=== PATIENT | female | born 1940 | race Caucasian/White ===

== ENCOUNTER 2022-09-28 08:43 | Outpatient (OUT) | payer MEDICARE, OTHER, SELFPAY ==
--- NOTE | 2022-09-28 09:07 | ECG_ITS ---
[facility] Test Date: 2022-09-28 Pat Name: ARIANE WILL Department: Room: - Gender: Female Surgery Technician: : 1940 Requested By: JOYN SMITH Order Number: [id number] Reading MD: BARNEY MURPHY Measurements Intervals [place] Rate: 58 P: 60 [place]: 189 QRS: 5 QRSD: 97 T: 47 QT: 412 QTc: 407 Interpretive Statements SINUS BRADYCARDIA No previous ECG available for comparison Electronically Signed On 09-29-2022 7:05:06 EDT by BARNEY MURPHY
--- NOTE | 2022-09-28 10:08 | XR_ITS ---
[address] [address] Patient Name: ARIANE WILL MRN: [id number] date: 1940 Sex: F Assigned Patient Location: [facility] Current Patient Location: [facility] Accession/Order Number: [id number] Exam Date: 09/28/2022 10:30 Report Date: 09/28/2022 10:52 At the request of: JONY SMITH Procedure: XR chest 2V EXAM: XR chest 2V HISTORY: Cyst Of Left Ovary COMPARISON: None. TECHNIQUE: PA and lateral views of the chest. FINDINGS: The cardiomediastinal silhouette is enlarged. No focal consolidation is identified. There is no pneumothorax. No pleural effusion is noted. The osseous structures are intact. XR/XR chest 2V IMPRESSION: Cardiomegaly without overt failure. Electronically authenticated by: MACKENZIE IRIZARRY Date: 09/28/2022 10:52
[2022-09-28 11:56] LABS: Anion Gap 12.9; BUN Creatinine Ratio 16.4; Calcium 9.1 mg/dL (8.5-10.1); Carbon Dioxide 30.2 mmol/L (21.0-32.0); Chloride 103 mmol/L (98-107); Estimated GFR (African America 51 (>=60); Estimated GFR (Non-African Ame 42 (>=60); Glucose 235 mg/dL (74-106); Potassium 4.1 mmol/L (3.5-5.1); Sodium 142 mmol/L (136-145)
== END 2022-09-28 08:44 | disposition home or self-care (01) ==
LOC: PST 08:44
PROVIDERS: PCP Family Medicine; Visit Provider Obstetrics & Gynecology
DX: Z01.812 Encounter for preprocedural laboratory examination (principal); Z01.810 Encounter for preprocedural cardiovascular examination; N83.202 Unspecified ovarian cyst, left side; N83.299 Other ovarian cyst, unspecified side; I10 Essential (primary) hypertension; E11.9 Type 2 diabetes mellitus without complications; I25.2 Old myocardial infarction; I51.7 Cardiomegaly
CPT/HCPCS: 71046; 80048; 93005

== ENCOUNTER 2022-10-08 06:02 | Day surgery (SDC) | payer MEDICARE, OTHER, SELFPAY ==
[2022-09-28 09:33] VITALS: BP 172/78; PULSE 63; RESP 20; TEMP 36.4; O2SAT 93; BMI 37.4
[2022-10-08] VITALS (33 sets, daily range): BP systolic 121–208; BP diastolic 54–95; PULSE 56–75; RESP 8–20; TEMP 36.1–36.6; O2SAT 83–97; BMI 38.1
[2022-10-08 06:14] LABS: Basophils Percent Auto 0.6 % (0.2-2.0); Eosinophils Absolute Auto 0.3 10^3/uL (0.0-0.7); Eosinophils Percent Auto 3.7 % (0.9-7.0); Hematocrit 38.6 % (36.0-48.0); Hemoglobin 12.5 g/dL (12.0-16.0); Immature Granulocytes Abs Auto 0.02 10^3/uL (0.00-0.03); Immature Granulocytes Pct Auto 0.3 % (0.0-0.5); Lymphocytes Absolute Auto 1.3 10^3/uL (1.2-3.8); Lymphocytes Percent Auto 18.9 % (20.5-60.0); Mean Corpuscular HGB Conc 32.4 g/dL (29.9-35.2); Mean Corpuscular Hemoglobin 30.2 pg (26.7-34.0); Mean Corpuscular Volume 93.2 fL (81.0-99.0); Mean Platelet Volume 9.4 fL (9.5-13.5); Monocytes Absolute Auto 0.7 10^3/uL (0.3-0.8); Monocytes Percent Auto 10.1 % (1.7-12.0); Neutrophils Absolute Auto 4.5 10^3/uL (1.4-6.5); Neutrophils Percent Auto 66.4 % (43.0-75.0); Platelet Count 247 10^3/uL (150-450); Red Blood Count 4.14 10^6/uL (4.20-5.40); Red Cell Distribution Width 13.7 % (11.0-15.0); White Blood Count 6.7 10^3/uL (4.0-11.0)
[2022-10-08 06:32] LABS: Glucometer 177 mg/dL (74-106)
[2022-10-08] MEDS: LACTATED RINGER'S SOLUTION 1,000 ML 50 ML IV ×2 (06:54→08:40)
[2022-10-08] MEDS: SCOPOLAMINE 1 EACH PATCH.TD.3 1 PATCH TD (07:04)
--- NOTE | 2022-10-08 08:50 | PC.NURSE ---
LEFT OVARIAN CYST FLUID SENT FOR CYTOLOGY
--- NOTE | 2022-10-08 09:26 | P.ON_ITS ---
Brief Operative Note Date of procedure: 10/08/22 Pre-op diagnosis: lt ovarian cyst 11cm Post-op diagnosis: same Procedure: NAME OF PROCEDURE: [diagnostic laparoscopy with lt ovarian cystectomy, with removal of ovarian cyst fluid ] PROCEDURE: The patient was taken back to the Operating Room where she was placed in dorsal lithotomy position after given general anesthesia. The patient was prepped and draped in normal sterile fashion. A sponge stick was placed into the patient's vagina. Attention was turned to the patient's abdomen, where a small umbilical incision was made. The fascia was tented using Renetta clamps and the fascia was entered sharply. Confirmation of intraabdominal placement of the 10 mm port was confirmed under direct visualization using a laparoscope. The patient's abdomen was then insufflated using CO2 gas with approximately 4 liters. A second and third ports was placed left and rt laterally, this was done under direct visualization with a 8mm port. Survey of the patient's abdomen demonstrated normal liver and gallbladder. Survey of the patient's pelvic anatomy demonstrated normal appearing rt ovary and tubes as well as normal appearing uterus. large lt ovarian cyst approximate 11cm in size, ligasure was used to perform ovarian cystectomy and removal of cyst fluid. ligasure was also used to perform partial salpingectomy. Please note ovarty could not be removed in its entirity dt adhesions and involvement of ureter. No endometrial implants could be noted, no evidence of any pelvic disease was seen, normal appearing pelvic cavity. All instruments were removed from the patient's abdomen. . The patient's abdomen was deinsufflated of CO2 gas. The patient tolerated the procedure well. Sponge stick was removed from the patient's vagina. The patient's infraumbilical fascia was closed using #0 Vicryl on a GI needle. The patient's skin was closed laterally and infraumbilically using 4-0 Vicryl. The patient tolerated the procedure well. Sponge, lap and needle counts were correct x 2. The patient was taken to Recovery Room in stable condition.Clips from prior surgery noted adhered to bladder, the clips were grasped and gently removed please note robotic laparoscopy was attempted and converted to diagnostic laparoscopy Anesthesia: CAROLANN Surgeon: Eliseo Infante Performance Improvement Specialist: Ashleigh Chapa Estimated blood loss (mL): 5 Pathology: other (lt partial tube, lt ovarian cyst wall, lt ovarian cyst fluid) Condition: stable Disposition: PACU
[2022-10-08] MEDS: KETOROLAC TROMETHAMINE 30 MG/ML VIAL IVP (09:50)
[2022-10-08] MEDS: HYDROMORPHONE HCL 0.5 MG/0.5 ML SYRINGE IV (09:56)
[2022-10-08] MEDS: HYDRALAZINE HCL 20 MG/ML VIAL 10 MG IVP (10:05)
--- NOTE | 2022-10-08 10:11 | PC.NURSE ---
updated Dr Zapata on continued elevated blood pressures. Per his order administered 10 ml of hydralazine current bp 163/68 post hydralazine
--- NOTE | 2022-10-08 10:30 | PC.NURSE ---
Patient states she has no pain in the abdomen hip is sore right side
--- NOTE | 2022-10-08 10:52 | PC.NURSE ---
Updated Dr. Zapata on the blood pressures post administration and he is aware of improvement during patient stay in PACU.
[2022-10-08] MEDS: ONDANSETRON PF 4 MG/2 ML VIAL IV (11:10)
--- NOTE | 2022-10-08 11:20 | PC.NURSE ---
Dressings x3 dry and intact to abdomen; peripad dry; retching, no emesis; Dr. Baumann notified and Zofran order received; Drowsy.
--- NOTE | 2022-10-08 11:44 | PC.NURSE ---
Dressings x3 dry and intact to abdomen; very drowsy; awakens momentarily and then returns to sleep; nausea free for a short interval and then retching again without emesis; had been given 2 ice chips previously; no c/o surgical pain; 2 family members present
--- NOTE | 2022-10-08 11:51 | PC.NURSE ---
Dr. Baumann aware of pt's retching when awake; no orders received at this time
--- NOTE | 2022-10-08 12:43 | PC.NURSE ---
Continues retching at intervals; no emesis; 3 abdominal dressings dry and intact; no drainage on peripad; incontinent of large amount urine; pericare given and clean linens and chux applied; remains drowsy and lethargic family states that nausea lasts all day after any surgery, no matter what type of surgery; also family states pt. has difficulty waking up after surgery; anesthesia aware
--- NOTE | 2022-10-08 12:51 | PC.NURSE ---
Dressings dry and intact x3 to abdomen; peripad dry; drowsy, lethargic; follows commands; retching at intervals continues without emesis; anesthesia aware and no new orders; decision will be made around 2pm for admission overnight, if assessment unchanged, per anestheseia
[2022-10-08] MEDS: LACTATED RINGER'S SOLUTION 1,000 ML 150 ML IV (13:21)
--- NOTE | 2022-10-08 13:37 | PC.NURSE ---
Dressings to abdomen dry and intact x3; retching continues with longer intervals in between without emesis; remain drowsy and lethargic; Dr. Zapata to call hospitalist for admission overnight
[2022-10-08 13:46] LABS: Glucometer 235 mg/dL (74-106)
--- NOTE | 2022-10-08 13:49 | PC.NURSE ---
Anesthesia informed of accucheck result
[2022-10-09 04:40] VITALS: BP 164/63; PULSE 79; RESP 18; TEMP 36.9; O2SAT 92
[2022-10-09 08:39] VITALS: O2SAT 90
[2022-10-09 09:54] VITALS: O2SAT 90
[2022-10-09 11:14] LABS: Glucometer 192 mg/dL (74-106)
[2022-10-09 11:26] VITALS: O2SAT 91
[2022-10-09 11:45] VITALS: O2SAT 92
[2022-10-09 14:00] VITALS: BP 122/76; PULSE 86; RESP 18; TEMP 36.7; O2SAT 100
== END 2022-10-09 15:15 | disposition home or self-care (01) ==
LOC: SURGOUT 10:37 → MS 14:21
PROVIDERS: Obstetrics & Gynecology; PCP Family Medicine
PROC: (CPT 58661; principal; 2022-10-08 07:30)
DX: N83.202 Unspecified ovarian cyst, left side (principal); E11.40 Type 2 diabetes mellitus with diabetic neuropathy, unspecified; K21.9 Gastro-esophageal reflux disease without esophagitis; Z96.653 Presence of artificial knee joint, bilateral; E78.5 Hyperlipidemia, unspecified; E03.9 Hypothyroidism, unspecified; M19.90 Unspecified osteoarthritis, unspecified site; Z90.11 Acquired absence of right breast and nipple; I25.2 Old myocardial infarction; I25.10 Atherosclerotic heart disease of native coronary artery without angina pectoris; E11.22 Type 2 diabetes mellitus with diabetic chronic kidney disease; N18.9 Chronic kidney disease, unspecified; I12.9 Hypertensive chronic kidney disease with stage 1 through stage 4 chronic kidney disease, or unspecified chronic kidney disease; Z79.82 Long term (current) use of aspirin; Z79.899 Other long term (current) drug therapy; Z79.890 Hormone replacement therapy; Z79.4 Long term (current) use of insulin; Z85.3 Personal history of malignant neoplasm of breast; J44.9 Chronic obstructive pulmonary disease, unspecified
CPT/HCPCS: 58661; 58662; 36415; 82948; 85025; 88112; 88305; 94667; 94761; 99999; J1170; J2704

== ENCOUNTER 2023-07-13 06:56 | Day surgery (SDC) | payer MEDICARE, SELFPAY ==
--- NOTE | 2023-07-13 07:06 | FL_ITS ---
The [address] [address] Patient Name: ARIANE WILL MRN: [id number] date: 1940 Sex: F Assigned Patient Location: [place] Current Patient Location: [place] Accession/Order Number: [id number] Exam Date: 07/13/2023 07:30 Report Date: 07/13/2023 08:29 At the request of: BRIDGET ZHONG Procedure: FL guided needle placement EXAMINATION: FL hip inj RT, FL guided needle placement HISTORY: Right Hip Arthritis Pre exam pain 4/10, Post exam pain 3/10 COMPARISON: 08/04/2022 1.5 minutes of fluoroscopy. Single image TECHNIQUE: A joint injection was performed in the usual sterile manner after obtaining informed consent. Standard level fluoroscopic mode of operation utilized. FINDINGS: JOINT: Right hip. NEEDLE: 22 gauge, 5.5 spinal needle. MEDICATION: 5cc buffered 1% lidocaine for subcutaneous anesthesia 2cc Omnipaque-300 iodinated contrast to visualize the joint space Mixture of Kenalog 40 mg, 0.5% Bupivacaine 2 mL and Omnipaque 300 10mL was injected into the joint space. TECHNIQUE: Anterior approach with prior localization of the femoral artery. A single stick was successful in gaining access to the joint space. CLINICAL: 4 out of 10 pain before the injection. 3 out of 10 pain following the injection COMPLICATIONS: None. OTHER: Negative. FL/FL guided needle placement IMPRESSION: Technically successful right hip therapeutic arthrogram Electronically authenticated by: RAFAT MONIQUE Date: 07/13/2023 08:29
[2023-07-13] MEDS: BUPIVACAINE HCL 0.5% PF 50 MG/10 ML VIAL 2 ML INJ (08:00)
[2023-07-13] MEDS: LIDOCAINE HCL 10 ML, SODIUM BICARBONATE 1 MEQ INJ (08:00)
[2023-07-13] MEDS: TRIAMCINOLONE ACETONIDE 40 MG/ML VIAL INJ (08:00)
--- NOTE | 2023-07-13 08:19 | FL_ITS ---
The [address] [address] Patient Name: ARIANE WILL MRN: [id number] date: 1940 Sex: F Assigned Patient Location: [place] Current Patient Location: [place] Accession/Order Number: [id number] Exam Date: 07/13/2023 07:30 Report Date: 07/13/2023 08:29 At the request of: BRIDGET ZHONG Procedure: FL hip inj RT EXAMINATION: FL hip inj RT, FL guided needle placement HISTORY: Right Hip Arthritis Pre exam pain 4/10, Post exam pain 3/10 COMPARISON: 08/04/2022 1.5 minutes of fluoroscopy. Single image TECHNIQUE: A joint injection was performed in the usual sterile manner after obtaining informed consent. Standard level fluoroscopic mode of operation utilized. FINDINGS: JOINT: Right hip. NEEDLE: 22 gauge, 5.5 spinal needle. MEDICATION: 5cc buffered 1% lidocaine for subcutaneous anesthesia 2cc Omnipaque-300 iodinated contrast to visualize the joint space Mixture of Kenalog 40 mg, 0.5% Bupivacaine 2 mL and Omnipaque 300 10mL was injected into the joint space. TECHNIQUE: Anterior approach with prior localization of the femoral artery. A single stick was successful in gaining access to the joint space. CLINICAL: 4 out of 10 pain before the injection. 3 out of 10 pain following the injection COMPLICATIONS: None. OTHER: Negative. FL/FL hip inj RT IMPRESSION: Technically successful right hip therapeutic arthrogram Electronically authenticated by: RAFAT MONIQUE Date: 07/13/2023 08:29
--- NOTE | 2023-07-13 08:37 | SUR.PREOP ---
07/08/23 Pt instructed on procedure, date, time, and prep.
== END 2023-07-13 08:25 | disposition home or self-care (01) ==
LOC: FL 06:58
PROVIDERS: Radiology Diagnostic Radiology; PCP Family Medicine; Visit Provider Orthopaedic Surgery
DX: M16.11 Unilateral primary osteoarthritis, right hip (principal)
CPT/HCPCS: 20610; 77002; Q9967

== ENCOUNTER 2024-01-18 09:20 | Day surgery (SDC) | payer MEDICARE, SELFPAY ==
--- NOTE | 2024-01-18 09:27 | FL_ITS ---
The [address] [address] Patient Name: ARIANE WILL MRN: [id number] date: 1940 Sex: F Assigned Patient Location: [place] Current Patient Location: Accession/Order Number: [id number] Exam Date: 01/18/2024 09:40 Report Date: 01/18/2024 11:12 At the request of: BRIDGET ZHONG Procedure: FL guided needle placement EXAMINATION: FL hip inj RT, FL guided needle placement HISTORY: Primary Osteoarthritis Of Right Hip COMPARISON: No relevant comparison available. FLUORO DOSE: 3 minutes of fluoroscopy. 22.6 mgy TECHNIQUE: A joint injection was performed in the usual sterile manner after obtaining informed consent. Standard level fluoroscopic mode of operation utilized. FINDINGS: JOINT: Right hip. NEEDLE: 22 gauge, 3.5 spinal needle. MEDICATION: 2cc buffered 1% lidocaine for subcutaneous anesthesia 2cc Omnipaque-300 iodinated contrast to visualize the joint space Mixture of Kenalog 40 mg, 0.5% Bupivacaine 2 mL and Omnipaque 300 10mL was injected into the joint space. TECHNIQUE: Anterior approach with prior localization of the femoral artery. 4 sticks were required for gaining access to the joint space. CLINICAL: Near complete resolution of hip pain following the injection. COMPLICATIONS: None. OTHER: Preprocedure pain 8/10, postprocedure pain 2/10. FL/FL guided needle placement IMPRESSION: Technically successful therapeutic arthrogram of the right hip Electronically authenticated by: RAFAT MONIQUE Date: 01/18/2024 11:12
--- NOTE | 2024-01-18 09:27 | FL_ITS ---
The [address] [address] Patient Name: ARIANE WILL MRN: [id number] date: 1940 Sex: F Assigned Patient Location: [place] Current Patient Location: Accession/Order Number: [id number] Exam Date: 01/18/2024 09:40 Report Date: 01/18/2024 11:12 At the request of: BRIDGET ZHONG Procedure: FL hip inj RT EXAMINATION: FL hip inj RT, FL guided needle placement HISTORY: Primary Osteoarthritis Of Right Hip COMPARISON: No relevant comparison available. FLUORO DOSE: 3 minutes of fluoroscopy. 22.6 mgy TECHNIQUE: A joint injection was performed in the usual sterile manner after obtaining informed consent. Standard level fluoroscopic mode of operation utilized. FINDINGS: JOINT: Right hip. NEEDLE: 22 gauge, 3.5 spinal needle. MEDICATION: 2cc buffered 1% lidocaine for subcutaneous anesthesia 2cc Omnipaque-300 iodinated contrast to visualize the joint space Mixture of Kenalog 40 mg, 0.5% Bupivacaine 2 mL and Omnipaque 300 10mL was injected into the joint space. TECHNIQUE: Anterior approach with prior localization of the femoral artery. 4 sticks were required for gaining access to the joint space. CLINICAL: Near complete resolution of hip pain following the injection. COMPLICATIONS: None. OTHER: Preprocedure pain 8/10, postprocedure pain 2/10. FL/FL hip inj RT IMPRESSION: Technically successful therapeutic arthrogram of the right hip Electronically authenticated by: RAFAT MONIQUE Date: 01/18/2024 11:12
--- OUTSIDE RECORDS SUMMARY | 2024-01-18 09:30 | XMS_ITS | CCD ---
Author Organization [facility] Care Team Providers Care Barber Apprentice Name Role Phone DR MAHNAZ HUBBARD Attending Unavailable HAYDEE, DR LE Consulting Unavailable HAYDEE, DR LE Primary Care Unavailable HAYDEE, DR LE Admitting Unavailable MALISSA, DR MARISA Varghese Consulting Unavailable Teodoro Kelly Unavailable Teodoro Kelly Attending Unavailable Teodoro Kelly Admitting Unavailable Mahnaz Short Primary Care Un available Landy Romano Unavailable Mahnaz Hubbard MD Primary Care Provider Mahnaz Hubbard MD Unavailable Mahnaz Hubbard MD Primary Care Provider BARB AWAN Attending Unavailable MAHNAZ HUBBARD Referring Unavailable MAHNAZ HUBBARD Primary Care Unavailable OLEG RICHARDS Attending Unavailable MAHNAZ HUBBARD Referring Unavailable MAHNAZ HUBBARD Primary Care Unavailable MAHNAZ HUBBARD Primary Care Unavailable BINDU LOZANO Attending Unavailable MARTIR SANTIAGO Consulting Unavailable ZEINAB MOTT Admitting Unavailable MARTA, BINDU Diogo Attending Unavailable MARTA, BINDU T Referring Unavailable MAHNAZ HUBBARD Primary Care Unavailable MARTA, BINDU T Attending Unavailable MARTA, BINDU T Referring Unavailable MAHNAZ HUBBARD Primary Care Unavailable MARTA, BINDU T Attending Unavailable MARTA, BINDU T Referring Unavailable MAHNAZ HUBBARD Primary Care Unavailable JOSE DALAL Attending Unavailable JOSE DALAL Referring Unavailable MAHNAZ HUBBARD Primary Care Unavailable RAFAT HOUSTON Attending Unavailable MAHNAZ HUBBARD Primary Care Unavailable DANDRE WHALEY Attending Unavailable MAHNAZ HUBBARD Referring Unavailable MAHNAZ HUBBARD Primary Care Unavailable MAHNAZ HUBBARD Referring Unavailable MAHNAZ HUBBARD Primary Care Unavailable ARMIN PARDO Referring Unavailable MAHNAZ HUBBARD Primary Care Unavailable ALIZA CHERRY Referring Unavailable MAHNAZ HUBBARD Primary Care Unavailable Mavis Wynn DO Unavailable Mahnaz Hubbard MD Unavailable Guerrero DILLON, Lin Miller Unavailable LIN MASTERS Attending Unavailab le GUERRERO, LIN Miller Attending Unavailab cee MASTERS, LIN Miller Referring Unavailab le GUERRERO, LIN Miller Attending Unavailab cee SANCHEZ JR., BRIDGET Pretty Attending Unavaila ralph SANCHEZ JR., BRIDGET Pretty Referring Unavaila ble JOSE PEREIRA Attending Unavailable JR. FARHEEN, BRIDGET Pretty Referring Unavaila ble GUERRERO, LIN Miller Attending Unavailab ALIZA Spangler Attending Unavailable ALIZA CHERRY F Referring Unavailable JR. FARHEEN, BRIDGET Pretty Attending Unavaila ralph Allergies Allergy Classification Reported Allergen(s) Allergy Type Date of Onset Reaction(s) Facility (9 sources) Acetaminophen / HYDROcodone Drug Allergy 023 Unknown [facility] Repository (1 source) Ciprofloxacin Drug Allergy 023 [facility] (1 source) Codeine / guaiFENesin Drug Allergy 023 [facility] Rep[facility] (1 source) levoFLOXacin Drug Allergy 023 [facility] Rep[facility] (3 sources) Morphine; Translations: [MORPHINE] Drug Allergy 018 [facility] Rep[facility] (1 source) moxifloxacin Drug Allergy 023 [facility] (1 source) Nitrofurantoin Drug Allergy 023 [facility] (9 sources) Penicillin Drug Allergy 023 Unknown [facility] (1 source) Sulfamethoxazole / Trimethoprim Drug Allergy 023 [facility] Rep[facility] (9 sources) Acetaminophen / oxyCODONE Drug Allergy 018 Vomiting [employer] Other (20 sources) Ciprofloxacin; Translations: [CIPROFLOXACIN] Drug Allergy Rash [facility] Work Phone: (20 sources) levoFLOXacin; Translations: [LEVOFLOXACIN] Drug Allergy 018 Rash [employer] Other (18 sources) Morphine Drug Allergy 018 Abnormal Behavior, Hallucinations [employer] Other (17 sources) Nitrofurantoin Drug Allergy 023 Unknown [employer] Other (8 sources) Sulfamethoxazole Drug Allergy Unknown [employer] Other (8 sources) Guaifenesin DM Cough & Chest Drug allergy Unknown [employer] Other (12 sources) Acetaminophen / HYDROcodone; Translations: [HYDROCODONE-ACETAM INOPHEN] Drug Allergy 018 Vomiting [facility] (11 sources) Acetaminophen / oxyCODONE; Translations: [OXYCODONE-ACETAMIN OPHEN] Drug Allergy 018 [facility] (11 sources) Lisinopril; Translations: [LISINOPRIL] Propensity to adverse reactions 020 Cough [facility] Work Phone: (12 sources) moxifloxacin; Translations: [MOXIFLOXACIN] Drug Allergy 018 [facility] (9 sources) Penicillin G Drug Allergy 023 Rash [facility] (12 sources) Sulfamethoxazole / Trimethoprim; Translations: [SULFAMETHOXAZOLE-T RIMETHOPRIM] Drug Allergy 020 Rash [facility] (9 sources) Guaifenesin-Codeine Drug Allergy 023 Rash [facility] (3 sources) Codeine / guaiFENesin; Translations: [CODEINE-GUAIFENESI N] Drug Allergy 018 [facility] (1 source) Lisinopril Drug Allergy 020 Cough [facility] Work Phone: (3 sources) NITROFURANTOIN, MACROCRYSTALS / Nitrofurantoin, Monohydrate; Translations: [NITROFURANTOIN MONOHYD/M-CRYST] [facility] (3 sources) Penicillins; Translations: [PENICILLINS] Propensity to adverse reactions to drug 017 Hives [facility] Medications Current Medications Medication Drug Class(es) Dates Sig (Normalized) Sig (Original) acetaminophen 500 mg oral tablet (10 sources) take 1 tablet by mouth every six hours as needed acetaminophen (Tylenol) 500 MG tablet Take 500 mg by mouth every 6 (six) hours if needed. Active Albuterol Sulfate 108 (90 Base) MCG/ACT (8 sources) take 1 puff(s) by inhalation every four hours as needed Albuterol Sulfate 108 (90 Base) MCG/ACT 1 puff as needed Inhalation every 4 hrs Active amLODIPine 10 mg oral tablet (18 sources) Dihydropyridine Calcium Channel Madhavi Start: 10-25-2023 End: 04-01-2024 take 1 tablet by mouth once daily amLODIPine (Norvasc) 10 MG tablet Indications: Essential hypertension (CMS/HCC) Take 1 tablet (10 mg) by mouth Daily 90 tablet 01/02/2024 04/01/2024 Active Start: 10-07-2022 take 1 tablet by obie th in the morning amLODIPine (NORVASC) 10 mg tablet Take 1 tablet (10 mg total) by mouth in the morning. 90 tablet 3 10/07/2022 Active aspirin 81 mg delayed release oral tablet (9 sources) Platelet Aggregation Inhibitor, Nonsteroidal Anti-inflammatory Drug take 1 tablet by mouth in the morning aspirin 81 mg Take 1 tablet (81 mg total) by mouth in the morning. 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 (CMS/HCC) TAKE 1 TABLET(80 MG) BY MOUTH AT BEDTIME 90 tablet 3 07/12/2023 Active carvedilol 25 mg oral tablet (18 sources) alpha-Adrenergic Madhavi, beta-Adrenergic Madhavi Start: 03-31-2022 take 1 tablet by mouth once daily in the morning, then take 1 tablet by mouth once daily at bedtime carvedilol (Coreg) 25 MG tablet TAKE 1 TABLET BY MOUTH EVERY MORNING AND 1 TABLET EVERY NIGHT AT BEDTIME 03/31/2022 Active take 1 tablet by obie th every twelve hours Carvedilol 25 MG 1 tablet with food Oral ly Twice a day Active cholecalciferol 0.125 mg oral tablet (14 sources) Vitamin D take 1 tablet by mouth in the morning cholecalciferol (D3-5) 5,000 Units tablet Take 5,000 Units by mouth in the morning. Active Vitamin D3 25 MC G (1000 UT) as directed Active clobetasol propionate 0.0005 mg/mg topical ointment (8 sources) Corticosteroid Start: 04-25-2023 clobetasol (Te movate) 0.05 % ointment Indications: Dermatosis Apply topically 2 (two) times a day Apply in thin layers. Could thin and discolor skin. Do not use on face or private areas. 30 g 3 04/25/2023 Active Continuous Blood Gluc Engine Setter (FreeStyle Deonte 14 Day Topanga) device (9 sources) Continuous Blood Gluc Engine Setter (FreeStyle Deonte 14 Day Topanga) device FreeStyle Deonte 14 Day Topanga Active Continuous Blood Gluc Engine Setter (FreeStyle Deonte 14 Day Topanga) device FreeStyle Deonte 14 Day Topanga 0 Active cranberry fruit extract (CRANBERRY ORAL) (1 source) cranberry fruit extract (CRANBERRY ORAL) Take by mouth. 0 Active estradiol 0.1 mg/ml vaginal cream (1 source) Estrogen Start: 03-23-2022 estradioL (ESTRACE) 0.01 % (0.1 mg/gram) vaginal cream Apply small dab every other night around urethra 42.5 g 0 03/23/2022 Active fluticasone propionate 0.05 mg/actuat metered dose nasal spray (10 sources) Corticosteroid fluticasone (Tao nase) 50 MCG/ACT nasal spray 1 spray in the morning. Active take 1 spray(s) nasa l route in the morning fluticasone propionate (FLONASE) 50 mcg/actuation nasal spray Administer 1 spray into each nostril in the morning. 0 Active hydroCHLOROthiazide 25 mg / lisinopril 20 mg oral tablet (1 source) Thiazide Diuretic, Angiotensin Converting Enzyme Inhibitor take 1 tablet by mouth in the morning lisinopril-hydroCHLOROthiazide 20-25 MG tablet Take 1 tablet by mouth in the morning. 0 Active 3 ml insulin aspart protamine, human 70 unt/ml / insulin aspart, human 30 unt/ml pen injector (9 sources) Insulin Analog insulin aspart p rotamine-insulin aspart (NovoLOG MIX 70/30 FLEXPEN) (70-30) 100 UNIT/ML injection every 12 (twelve) hours 25 units in the AM and 20 units in the PM Active insulin isophane, human 70 unt/ml / insulin, regular, human 30 unt/ml injectable suspension (9 sources) Insulin Sta rt: 1 inject 0.2 mL by subcutaneous injection twice daily before mealtime insulin NPH and regular human (HumuLIN 70-30,NovoLIN 70-30) 100 unit/mL (70-30) injection Inject 0.2 mL (20 Units total) under the skin 2 (two) times a day before meals. 1 Box 12 04/26/2020 Active NovoLIN 70/30 (7 0-30) 100 UNIT/ML as directed Subcutaneous Active levothyroxine sodium 0.1 mg oral tablet (19 sources) l-Thyroxine Start: 07-12-2023 End: 01-01-2024 take 1 tablet by mouth once daily in the morning levothyroxine (Synthroid, Levoxyl) 100 MCG tablet Indications: Acquired hypothyroidism (CMS/HCC) TAKE 1 TABLET BY MOUTH EVERY DAY IN THE MORNING ON AN EMPTY STOMACH 100 tablet 1 01/02/2024 Active Start: 01-17-2023 take 1 tablet by obie th once daily in the morning levothyroxine (Synthroid, Levoxyl) 100 MCG tablet Indications: Acquired hypothyroidism (CMS/HCC) TAKE 1 TABLET BY MOUTH EVERY DAY IN THE MORNING ON AN EMPTY STOMACH 100 tablet 1 01/17/2023 Active levothyroxine (S YNTHROID, LEVOTHROID) 88 MCG tablet Take 100 mcg by mouth in the morning. 0 Active take 1 tablet by obie th once daily in the morning Levothyroxine Sodium 100 MCG 1 tablet in the morning on an empty stomach Orally Once a day Active losartan potassium 100 mg oral tablet (18 sources) Angiotensin 2 Receptor Madhavi Start: 02-15-2022 take 1 tablet by mouth in the morning losartan (Cozaar) 100 MG tablet Take 100 mg by mouth in the morning. 02/15/2022 Active Magnesium (1 source) Start: 01-17-2023 take 1 tablet by mouth twice daily Magnesium 400 MG capsule Indications: Hypomagnesemia 1 tablet Orally two times daily for 90 days 200 capsule 1 01/17/2023 Active magnesium oxide 400 mg oral tablet (18 sources) Start: 07-12-2023 End: 01-01-2024 take 1 tablet by mouth twice daily magnesium oxide (Mag-Ox) 400 (240 Mg) MG tablet Indications: Hypomagnesemia TAKE 1 TABLET BY MOUTH TWICE DAILY 200 tablet 1 01/02/2024 Active take 1 tablet by obie th in the morning, then take 1 tablet by mouth at bedtime magnesium oxide (MAG-OX) 400 mg tablet Take 1 tablet (400 mg total) by mouth in the morning and 1 tablet (400 mg total) before bedtime. 0 Active nitroglycerin 0.4 mg sublingual tablet (18 sources) Nitrate Vasodilator Start: 06-21-2022 nitroglyce rin (Nitrostat) 0.4 MG SL tablet SEE NOTES 06/21/2022 Active Start: 06-21-2022 nitroglycerin (NITROSTAT) 0.4 MG SL tablet Indications: Shortness of breath , Atherosclerosis of [place] coronary artery of [place] heart with stable angina pectoris ([facility]) , Hypertensive heart disease without heart failure SEE NOTES 25 tablet 3 06/21/2022 Active pilocarpine hydrochloride 10 mg/ml ophthalmic solution (1 source) Cholinergic Receptor Agonist pilocarpine (PILOCAR ) 1 % ophthalmic solution 1 drop as needed. 0 Active SITagliptin 50 mg oral tablet (10 sources) Dipeptidyl Peptidase 4 Inhibitor Start: 023 Januvia 50 MG tablet 04/12/2022 Active tetrahydrozoline hydrochloride 0.5 mg/ml / zinc sulfate 2.5 mg/ml ophthalmic solution (9 sources) tetrahydrozoline -zinc (Visine-AC) 0.05-0.25 % ophthalmic solution Administer 1 drop into affected eye(s) if needed. Active Tetrahydrozoline-Zn Sulfate 0.05-0.25 % (8 sources) take 1 drop(s) into the eye(s) four times daily as needed Tetrahydrozoline-Zn Sulfate 0.05-0.25 % 1 drop into affected eye as needed Ophthalmic Four times a day Active vitamin b12 1 mg oral tablet (13 sources) Vitamin B12 take 1 tablet by mouth in the morning cyanocobalamin (Vitamin B-12) 1000 MCG tablet Take 1,000 mcg by mouth in the morning. Active take 1 tablet by obie th every twenty-four hours Vitamin B12 1000 MCG 1 tablet Orally Once a day Active Vitamin B12 1000 MCG (4 sources) take 1 tablet by obie th once daily Vitamin B12 1000 MCG 1 tablet Orally Once a day Active Vitamin D3 25 MCG (1000 UT) (4 sources) Vitamin D3 25 MC G (1000 UT) as directed Active Problems Active Problems Problem Classification Problem Date Documented Date Episodic/Chronic Cancer of breast (9 sources) Malignant tumor of breast ; Translations: [Malignant neoplasm of unspecified site of unspecified female breast] Onset: 04-10-2012 09-28-2022 Chronic Chronic kidney disease (11 sources) Chronic kidney disease stage 3; Translations: [Stage 3 chronic kidney disease (HCC)] Onset: 09-23-2016 10-03-2022 Chronic Coronary atherosclerosis and other heart disease (20 sources) Coronary atherosclerosis; Translations: [Atherosclerotic heart disease of [place] coronary artery with other forms of angina pectoris] Onset: 09-01-2018 09-28-2022 Chronic Diabetes mellitus with complications (20 sources) Type 2 diabetes mellitus; Translations: [Type 2 diabetes mellitus with other circulatory complications] Onset: 07-26-2018 10-03-2022 Chronic Diabetes mellitus without complication (9 sources) Diabetes mellitus; Translations: [Type 2 diabetes mellitus without complications] Onset: 08-25-2020 09-28-2022 Chronic Disorders of lipid metabolism (13 sources) Hyperlipidemia; Translations: [Hyperlipidemia, unspecified] Onset: 12-24-2014 09-28-2022 Chronic Esophageal disorders (9 sources) Gastroesophageal reflux disease; Translations: [Gastro-esophageal reflux disease without esophagitis] Onset: 05-01-2018 09-28-2022 Chronic Essential hypertension (13 sources) Essential hypertension; Translations: [Essential (primary) hypertension] Onset: 03-24-2018 09-28-2022 Chronic Genitourinary symptoms and ill-defined conditions (10 sources) Incontinence; Translations: [Mixed incontinence] Onset: 10-21-2020 09-28-2022 Chronic Heart valve disorders (10 sources) Tricuspid incompetence, non-rheumatic ; Translations: [Nonrheumatic tricuspid (valve) insufficiency] Onset: 01-18-2019 09-28-2022 Chronic Hypertension with complications and secondary hypertension (20 sources) Hypertensive emergency; Translations: [Hypertensive emergency] Onset: 01-18-2019 Resolved: 04-23-2023 09-28-2022 Chronic Nutritional deficiencies (11 sources) Vitamin D deficiency, unspecified; Translations: [Vitamin D deficiency] Onset: 04-12-2023 12-02-2023 Chronic Osteoarthritis (20 sources) Bilateral arthritis of hip; Translations: [Bilateral primary osteoarthritis of hip] Onset: 09-28-2022 Resolved: 04-23-2023 09-28-2022 Chronic Other aftercare (2 sources) Long-term current use of insulin; 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] 12-12-2023 Episodic Other eye disorders (1 source) Conjunctival cysts, left eye; Translations: [Conjunctival cysts, left eye] Onset: 09-12-2023 Episodic Other liver diseases (9 sources) Lesion of liver; Translations: [Liver disease, unspecified] Onset: 09-28-2022 09-28-2022 Chronic Other nervous system disorders (8 sources) Chronic pain; Translations: [Other chronic pain] Chronic Other nervous system disorders (6 sources) Other chronic pain; Translations: [Other chronic pain] Onset: 01-20-2023 Chronic Other nutritional; endocrine; and metabolic disorders (12 sources) Severe obesity; Translations: [Morbid (severe) obesity due to excess calories] Onset: 04-17-2019 09-28-2022 Chronic Aarti-; endo-; and myocarditis; cardiomyopathy (except that caused by tuberculosis or sexually transmitted disease) (18 sources) Cardiomyopathy; Translations: [Cardiomyopathy, unspecified] Onset: 02-13-2018 09-28-2022 Chronic Residual codes; unclassified (1 source) Acquired absence of other specified parts of digestive tract; Translations: [Acquired absence of other specified parts of digestive tract] Onset: 05-27-2023 Episodic Thyroid disorders (10 sources) Acquired hypothyroidism; Translations: [Hypothyroidism, unspecified] Onset: 06-10-2016 10-03-2022 Chronic Unclassified (1 source) Other intervertebral disc degeneration, lumbar region; Translations: [Other intervertebral disc degeneration, lumbar region] Onset: 01-20-2023 Unclassified (1 source) Post-op Onset: 05-27-2023 Past or Other Problems Problem Classification Problem Date Documented Date Episodic/Chronic Abdominal pain (4 sources) Abdominal pain; Translations: [Unspecified abdominal pain] Onset: 05-12-2023 05-12-2023 Episodic Allergic reactions (9 sources) Allergy to drug; Translations: [Allergy status to other antibiotic agents status] Onset: 08-24-2018 Resolved: 04-23-2023 09-28-2022 Episodic Biliary tract disease (10 sources) Biliary colic; Translations: [Calculus of bile duct without cholangitis or cholecystitis without obstruction] Onset: 05-12-2023 05-12-2023 Episodic Cancer of breast (10 sources) History of malignant neoplasm of breast; Translations: [Personal history of malignant neoplasm of breast] Onset: 07-12-2018 10-03-2022 Episodic Genitourinary symptoms and ill-defined conditions (20 sources) History of recurrent urinary tract infection; Translations: [Personal history of urinary (tract) infections] Onset: 10-21-2020 Resolved: 04-23-2023 09-28-2022 Episodic Mood disorders (8 sources) Mood disorders Onset: 04-21-2023 04-21-2023 Nonspecific chest pain (10 sources) Chest pain; Translations: [Chest pain, unspecified] Onset: 01-07-2019 Resolved: 04-23-2023 09-28-2022 Episodic Other connective tissue disease (8 sources) Pain in finger of right hand; Translations: [Pain in right finger(s)] Onset: 07-26-2023 07-26-2023 Episodic Other diseases of kidney and ureters (9 sources) Abnormal renal function; Translations: [Disorder of kidney and ureter, unspecified] Onset: 09-28-2022 09-28-2022 Episodic Other female genital disorders (10 sources) Mass of uterine adnexa; Translations: [Other specified conditions associated with female genital organs and menstrual cycle] Onset: 06-09-2016 09-28-2022 Episodic Other female genital disorders (9 sources) Atrophic vulva; Translations: [Atrophy of vulva] Onset: 04-03-2019 Resolved: 04-23-2023 09-28-2022 Episodic Other lower respiratory disease (10 sources) Dyspnea; Translations: [Shortness of breath] Onset: 01-18-2019 Resolved: 04-23-2023 09-28-2022 Episodic Other nutritional; endocrine; and metabolic disorders (10 sources) Hypomagnesemia; Translations: [Hypomagnesemia] Onset: 08-25-2020 Resolved: 04-23-2023 09-28-2022 Chronic Other nutritional; endocrine; and metabolic disorders (10 sources) Body mass index 30+ - obesity; Translations: [Obesity, unspecified] Onset: 05-02-2020 Resolved: 04-23-2023 09-28-2022 Chronic Other screening for suspected conditions (not mental disorders or infectious disease) (9 sources) Imaging of thorax abnormal; Translations: [Abnormal findings on diagnostic imaging of other specified body structures] Onset: 08-15-2020 Resolved: 04-23-2023 09-28-2022 Chronic Other skin disorders (9 sources) Lichen sclerosus et atrophicus; Translations: [Circumscribed scleroderma] Onset: 10-08-2020 Resolved: 04-23-2023 09-28-2022 Chronic Ovarian cyst (10 sources) Cyst of ovary; Translations: [Unspecified ovarian cyst, unspecified side] Onset: 12-09-2016 Resolved: 04-23-2023 09-28-2022 Episodic Pancreatic disorders (not diabetes) (10 sources) Idiopathic acute pancreatitis; Translations: [Idiopathic acute pancreatitis without necrosis or infection] Onset: 06-25-2019 09-28-2022 Episodic Residual codes; unclassified (10 sources) FH: premature coronary heart disease; Translations: [Family history of ischemic heart disease and other diseases of the circulatory system] Onset: 01-18-2019 Resolved: 04-23-2023 09-28-2022 Episodic Screening and history of mental health and substance abuse codes (10 sources) Tobacco use and exposure - finding; Translations: [Personal history of nicotine dependence] Onset: 01-18-2019 09-28-2022 Episodic Spondylosis; intervertebral disc disorders; other back problems (20 sources) Solitary sacroiliitis; Translations: [Sacroiliitis, not elsewhere classified] Onset: 10-20-2022 Resolved: 04-23-2023 Chronic Spondylosis; intervertebral disc disorders; other back problems (20 sources) Lumbar radiculopathy; Translations: [Radiculopathy, lumbar region] Onset: 10-20-2022 Episodic Unclassified (1 source) Onset: 07-12-2018 07-12-2018 Urinary tract infections (20 sources) Escherichia coli urinary tract infection; Translations: [Urinary tract infection, site not specified] Onset: 06-25-2019 Resolved: 04-23-2023 09-28-2022 Episodic Results Test Name Value Interpretation Reference Range Facility Glucose (Bld) [Mass/Vol]Orde red By: Jenifer Shell on 12-12-2023 Glucose Blood, POC 136 mg/dL [facility] - Hematology and Cell countson 12-12-2023 HbA1c (Bld) [Mass fraction] 7.6 % [facility] No Panel InformationOrdered By: Jenifer Shell on 12-12-[address] [facility] [address] ORBITS SELLA EAR W WO CON Ton 09-15-2023 CT ORBITS SELLA EAR W WO CONT CT ORBITS SELLA EAR W WO CONT CT ORBITS SELLA EAR W WO CONT HISTORY: Congenital cyst of the left eye COMPARISON: CT brain 04/25/2020 TECHNIQUE: Multi detector CT axial slices of the orbit sella ear were obtained with and without Intravenous contrast. Sagittal and coronal 2-D reconstructed images were also obtained. Automated dose reduction techniques utilized. All CT scans at this facility use dose modulation, iterative reconstruction, and/or weight based dosing when appropriate to reduce radiation dose to as low as reasonably achievable. FINDINGS: There is no acute fracture, dislocation, or destructive osseous lesion. Mild degenerative changes of the bilateral temporomandibular joints. Small mucous retention cyst in the left maxillary alveolar recess. Bilateral amada bullosa. Mastoid air cells are clear. The visualized portion of the brain parenchyma is unremarkable appearing. Infratemporal soft tissues are within normal limits. Nonspecific 0.5 cm density within the subcutis tissue overlying the right cheek, may represent an epidermal inclusion cyst. Right-sided lens replacement. The intraconal and extraconal fat is symmetric and without acute abnormality. Symmetric appearance of the extraocular muscles. No acute abnormality involving the lacrimal ducts or preseptal soft tissues. 0.5 cm hypointense (possibly cystic observation within the left lateral conjunctiva. This lesion demonstrate no discrete enhancement. IMPRESSION: * A 0.5 cm hypointense (possibly cystic) lesion is seen within the left lateral conjunctiva without additional acute findings. This likely represents a benign conjunctival inclusion cyst. Ongoing clinical follow-up is recommended. * No additional acute findings are noted. Approved by Resident Apolinar Perla DO on 09/15/2023 8:12 AM IBobby MD have personally reviewed the image(s) and agree with and/or edited the report Finalized by Bobby Brooke MD on 09/15/2023 8:29 AM Normal [facility] CREATININEon 09-12-2023 Creatinine [Mass/Vol] 1.21 mg/dL High 0.40-1.00 [facility] Comment on above: Result Comment: METH OD TRACEABLE TO IDMS STANDARD Performed By: #### R ARELI, 55940-6, 37390-2 #### [facility] ([id number]) [address] [place] [address], [address] [place] [address] #### 1984-9 #### [facility] ([id number]) [address] [place] [address] 23151 GFR/1.73 sq M.predicted among non-blacks MDRD (S/P/Bld) [Vol rate/Area] 45 mL/min/{1.73_m2} Low >59 [facility] Comment on above: Result Comment: Reported eGFR is based on the CKD-EPI 2020 equation that does not use a race coefficient. Performed By: #### R ARELI, 98309-3, 78723-5 #### [facility] ([id number]) [address] [place] [address], [address] [place] [address] #### 1984-9 #### [facility] ([id number]) [address] [place] [address] 87482 CBC AND AUTO DIFFon 05-14-19 24 ABSOLUTE BASOPHIL 0.1 X10E9/L Normal 0.0-0.2 [facility] Comment on above: Performed By: #### R ENAL, 36906-6, 98955-3 #### [facility] ([id number]) [facility], [address] [place] [address] #### 1984-9 #### [facility] ([id number]) [address] [place] [address] 48005 ABSOLUTE NEUTROPHIL 8.3 X10E9/L High 1.5-6.6 [facility] Comment on above: Performed By: #### R ENAL, 44399-6, 81554-3 #### [facility] ([id number]) [address] [place] [address], [address] [place] [address] #### 1984-9 #### [facility] ([id number]) [address] [place] [address] 61215 Basophils/100 WBC (Bld) 0.8 % Normal [facility] Comment on above: Performed By: #### R ENAL, 98836-4, 55902-4 #### [facility] ([id number]) [address] [place] [address], [address] [place] [address] #### 1984-9 #### [facility] ([id number]) [address] [place] [address] 77414 Eosinophils (Bld) [#/Vol] 0.0 10*3/uL Normal 0.0-0.4 [facility] Comment on above: Performed By: #### R ENAL, 94305-1, 67702-2 #### [facility] ([id number]) [address] [place] [address], [address] [place] [address] #### 1984-9 #### [facility] ([id number]) [address] [place] [address] 96458 Eosinophils/100 WBC (Bld) 0.0 % Normal [facility] Comment on above: Performed By: #### R ENAL, 71794-4, 04246-1 #### [facility] ([id number]) [facility], [address] [place] [address] #### 1984-9 #### [facility] ([id number]) [address] [place] [address] 68271 Erythrocyte distribution width (RBC) [Ratio] 14.3 % Normal 11.5-15.0 [facility] Comment on above: Performed By: #### R CLAIREAL, 05283-1, 16765-5 #### [facility] ([id number]) [address] [place] [address], [address] [place] [address] #### 1984-9 #### [facility] ([id number]) [address] [place] [address] 41269 Hematocrit (Bld) [Volume fraction] 35.5 % Normal 35-47 [facility] Comment on above: Performed By: #### R CLAIREDONAVAN, 45223-7, 74597-2 #### [facility] ([id number]) [address] [place] [address], [address] [place] [address] #### 1984-9 #### [facility] ([id number]) [address] [place] [address] 73159 Hemoglobin (Bld) [Mass/Vol] 12.0 g/dL Normal 11.7-15.5 [facility] Comment on above: Performed By: #### R ENAL, 91763-4, 97788-3 #### [facility] ([id number]) [address] [place] [address], [address] [place] [address] #### 1984-9 #### [facility] ([id number]) [address] [place] [address] 15267 Lymphocytes (Bld) [#/Vol] 0.5 10*3/uL Low 1.0-3.5 [facility] Comment on above: Performed By: #### R ENAL, 56298-3, 21631-9 #### [facility] ([id number]) [address] [facility], [address] [place] [address] #### 1983-9 #### [facility] ([id number]) [address] [place] [address] 15591 Lymphocytes/100 WBC (Bld) 5.7 % Normal [facility] Comment on above: Performed By: #### R CLAIREAL, 03301-5, 98927-9 #### [facility] ([id number]) [address] [facility], [address] [place] [address] #### 1983-9 #### [facility] ([id number]) [address] [place] [address] 01944 MCH (RBC) [Entitic mass] 30.3 pg Normal 27-34 [facility] Comment on above: Performed By: #### R CLAIREAL, 13594-9, 60914-0 #### [facility] ([id number]) [address] [place] [address], [address] [place] [address] #### 1983-9 #### [facility] ([id number]) [address] [place] [address] 54456 MCHC (RBC) [Mass/Vol] 33.8 g/dL Normal 32-36 [facility] Comment on above: Performed By: #### R ENAL, 37312-3, 44222-5 #### [facility] ([id number]) [facility], [address] [place] [address] #### 1983-9 #### [facility] ([id number]) [address] [place] [address] 05533 MCV (RBC) [Entitic vol] 90 fL Normal 80-100 [facility] Comment on above: Performed By: #### R ARELI, 94677-7, 12714-7 #### [facility] ([id number]) [address], [address] [place] [address] #### 1983-9 #### [facility] ([id number]) [address] [place] [address] 77975 Monocytes (Bld) [#/Vol] 0.5 10*3/uL Normal 0-0.9 [facility] Comment on above: Performed By: #### Halima SINGLETON, 14073-4, 22962-8 #### [facility] ([id number]) [address] [facility], [address] [place] [address] #### 1983-9 #### [facility] ([id number]) [address] [place] [address] 28623 Monocytes/100 WBC (Bld) 5.6 % Normal [facility] Comment on above: Performed By: #### Halima SINGLETON, 25117-3, 83382-1 #### [facility] ([id number]) [address] [facility], [address] [place] [address] #### 1983-9 #### [facility] ([id number]) [address] [place] [address] 14113 Neutrophils/100 WBC (Bld) 87.9 % Normal [facility] Comment on above: Performed By: #### R ARELI, 08946-9, 04389-4 #### [facility] ([id number]) [address] [facility], [address] [place] [address] #### 1983-9 #### [facility] ([id number]) [address] [place] [address] 85626 Platelet mean volume (Bld) [Entitic vol] 8.5 fL Normal 7-12 [facility] Comment on above: Performed By: #### R ARELI, 32235-1, 43570-7 #### [facility] ([id number]) [address] [facility], [address] [place] [address] #### 1986-9 #### [facility] ([id number]) [address] [place] [address] 26443 Platelets (Bld) [#/Vol] 231 10*3/uL Normal 150-450 [facility] Comment on above: Performed By: #### Halima SINGLETON, 13309-1, 24508-9 #### [facility] ([id number]) [address] [facility], [address] [place] [address] #### 1984-9 #### [facility] ([id number]) [address] [place] [address] 76649 RBC COUNT 3.95 X10E12/L Normal 3.80-5.20 [facility] Comment on above: Performed By: #### Halima SINGLETON, 34222-6, 27658-5 #### [facility] ([id number]) [address] [facility], [address] [place] [address] #### 1986-9 #### [facility] ([id number]) [address] [place] [address] 67655 WBC (Bld) [#/Vol] 9.5 10*3/uL Normal 4.0-11.0 [facility] Comment on above: Performed By: #### R ARELI, 28048-5, 15836-5 #### [facility] ([id number]) [address] [facility], [address] [place] [address] #### 1984-9 #### [facility] ([id number]) [address] [place] [address] 76352 COMPREHENSIVE METABOLIC PANE Florian 05-14-2023 Albumin [Mass/Vol] 3.9 g/dL Normal 3.2-5.3 [facility] Comment on above: Performed By: #### R ARELI, 86642-3, 93970-8 #### [facility] ([id number]) [address] [facility], [address] [place] [address] #### 1983-9 #### [facility] ([id number]) [address] [place] [address] 02450 ALP [Catalytic activity/Vol] 79 U/L Normal 39-130 [facility] Comment on above: Performed By: #### R ENAL, 73120-2, 03757-7 #### [facility] ([id number]) [address] [facility], [address] [place] [address] #### 1986-9 #### [facility] ([id number]) [address] [place] [address] 12634 ALT [Catalytic activity/Vol] 34 U/L High 0-31 [facility] Comment on above: Performed By: #### R ARELI, 84618-4, 36838-4 #### [facility] ([id number]) [address] [facility], [address] [place] [address] #### 1983-9 #### [facility] ([id number]) [address] [place] [address] 48571 Anion gap [Moles/Vol] 9 mmol/L Normal 5-15 [facility] Comment on above: Performed By: #### R ENAL, 92411-2, 93071-8 #### [facility] ([id number]) [address] [facility], [address] [place] [address] #### 1983-9 #### [facility] ([id number]) [address] [place] [address] 01441 AST [Catalytic activity/Vol] 33 U/L Normal 0-41 [facility] Comment on above: Performed By: #### R ENAL, 47159-3, 25394-5 #### [facility] ([id number]) [address], [address] [place] [address] #### 1986-9 #### [facility] ([id number]) [address] [place] [address] 81098 Bilirubin [Mass/Vol] 0.6 mg/dL Normal 0.3-1.2 [facility] Comment on above: Performed By: #### Halima SINGLETON, 35555-3, 45517-3 #### [facility] ([id number]) [address] [facility], [address] [place] [address] #### 1986-9 #### [facility] ([id number]) [address] [place] [address] 37780 Calcium [Mass/Vol] 9.0 mg/dL Normal 8.5-10.5 [facility] Comment on above: Performed By: #### Halima SINGLETON, 90692-4, 33137-6 #### [facility] ([id number]) [address] [facility], [address] [place] [address] #### 1983-9 #### [facility] ([id number]) [address] [place] [address] 45719 Chloride [Moles/Vol] 105 mmol/L Normal 98-109 [facility] Comment on above: Performed By: #### Halima SINGLETON, 78482-6, 24885-0 #### [facility] ([id number]) [address], [address] [place] [address] #### 1983-9 #### [facility] ([id number]) [address] [place] [address] 54754 CO2 [Moles/Vol] 26 mmol/L Normal 22-32 [facility] Comment on above: Performed By: #### R ARELI, 27642-5, 01118-3 #### [facility] ([id number]) [address] [facility], [address] [place] [address] #### 1986-9 #### [facility] ([id number]) [address] [place] [address] 88382 Creatinine [Mass/Vol] 1.12 mg/dL High 0.40-1.00 [facility] Comment on above: Result Comment: METH OD TRACEABLE TO IDMS STANDARD Performed By: #### Halima SINGLETON, 19823-1, 03209-6 #### [facility] ([id number]) [address] [facility] [facility] [address] [place] [address] #### 1986-9 #### [facility] ([id number]) [address] [place] [address] 95421 GFR/1.73 sq M.predicted among non-blacks MDRD (S/P/Bld) [Vol rate/Area] 49 mL/min/{1.73_m2} Low >59 [facility] Comment on above: Result Comment: Reported eGFR is based on the CKD-EPI 2020 equation that does not use a race coefficient. Performed By: #### Halima SINGLETON, 22987-8, 64980-0 #### [facility] ([id number]) [address] [facility], [address] [place] [address] #### 1986-9 #### [facility] ([id number]) [address] [place] [address] 07559 Glucose [Mass/Vol] 149 mg/dL High 65-99 [facility] Comment on above: Performed By: #### Halima SINGLETON, 35444-3, 70553-3 #### [facility] ([id number]) [address] [facility], [address] [place] [address] #### 1986-9 #### [facility] ([id number]) [address] [place] [address] 81182 Potassium [Moles/Vol] 4.0 mmol/L Normal 3.5-5.0 [facility] Comment on above: Performed By: #### Halima SINGLETON, 31268-5, 46088-6 #### [facility] ([id number]) [address] [facility], [address] [place] [address] #### 1986-9 #### [facility] ([id number]) [address] [place] [address] 89263 Protein [Mass/Vol] 6.9 g/dL Normal 6.0-8.0 [facility] Comment on above: Performed By: #### Halima SINGLETON, 34721-4, 12502-3 #### [facility] ([id number]) [address] [facility], [address] [place] [address] #### 1986-9 #### [facility] ([id number]) [address] [place] [address] 50129 Sodium [Moles/Vol] 140 mmol/L Normal 134-146 [facility] Comment on above: Performed By: #### Halima SINGLETON, 72187-0, 02665-3 #### [facility] ([id number]) [address] [facility], [address] [place] [address] #### 1986-9 #### [facility] ([id number]) [address] [place] [address] 27577 Urea nitrogen [Mass/Vol] 20 mg/dL Normal 5-27 [facility] Comment on above: Performed By: #### R ARELI, 36907-4, 90307-8 #### [facility] ([id number]) [address] [facility], [address] [place] [address] #### 1986-9 #### [facility] ([id number]) [address] [place] [address] 61924 Glucose Glucometer (BldC) [M ass/Vol]on 05-14-2023 Glucose [Mass/Vol] 196 mg/dL High 65-99 [facility] MAGNESIUMon 05-14-2023 Magnesium [Mass/Vol] 1.9 mg/dL Normal 1.8-2.6 [facility] Comment on above: Performed By: #### Halima SINGLETON, 67536-7, 51965-8 #### [facility] ([id number]) [address] [place] [address], [address] [place] [address] #### 1983-9 #### [facility] ([id number]) [address] [place] [address] 72708 CBC AND AUTO DIFFon 05-13-19 24 ABSOLUTE BASOPHIL 0.1 X10E9/L Normal 0.0-0.2 [facility] Comment on above: Performed By: #### Halima SINGLETON, 77825-4, 29338-6 #### [facility] ([id number]) [address] [place] [address] #### 9 #### [facility] ([id number]) [address] [place] [address] 97054 ABSOLUTE NEUTROPHIL 6.8 X10E9/L High 1.5-6.6 [facility] Comment on above: Performed By: #### Halima SINGLETON, 51289-1, 15258-8 #### [facility] ([id number]) [address] [place] [address], [address] [place] [address] #### 1983-9 #### [facility] ([id number]) [address] [place] [address] 40562 Basophils/100 WBC (Bld) 0.7 % Normal [facility] Comment on above: Performed By: #### Halima SINGLETON, 25658-8, 30577-2 #### [facility] ([id number]) [address] [place] [address], [address] [place] [address] #### 9 #### [facility] ([id number]) [address] [place] [address] 03276 Eosinophils (Bld) [#/Vol] 0.1 10*3/uL Normal 0.0-0.4 [facility] Comment on above: Performed By: #### Halima SINGLETON, 45541-2, 69818-6 #### [facility] ([id number]) [address] [facility], [address] [place] [address] #### 9 #### [facility] ([id number]) [address] [place] [address] 40758 Eosinophils/100 WBC (Bld) 0.9 % Normal [facility] Comment on above: Performed By: #### Halima SINGLETON, 87213-7, 20903-2 #### [facility] ([id number]) [address] [facility], [address] [place] [address] #### 9 #### [facility] ([id number]) [address] [place] [address] 87891 Erythrocyte distribution width (RBC) [Ratio] 14.3 % Normal 11.5-15.0 [facility] Comment on above: Performed By: #### Halima SINGLETON, 12820-0, 84317-2 #### [facility] ([id number]) [address] [facility], [address] [place] [address] #### 9 #### [facility] ([id number]) [address] [place] [address] 39511 Hematocrit (Bld) [Volume fraction] 34.9 % Low 35-47 [facility] Comment on above: Performed By: #### R ARELI, 64221-2, 32905-5 #### [facility] ([id number]) [address] [facility], [address] [place] [address] #### 1983-11 #### [facility] ([id number]) [address] [place] [address] 46115 Hemoglobin (Bld) [Mass/Vol] 11.8 g/dL Normal 11.7-15.5 [facility] Comment on above: Performed By: #### R ARELI, 64450-8, 81590-0 #### [facility] ([id number]) [address] [facility], [address] [place] [address] #### 9 #### [facility] ([id number]) [address] [place] [address] 01019 Lymphocytes (Bld) [#/Vol] 1.3 10*3/uL Normal 1.0-3.5 [facility] Comment on above: Performed By: #### Halima SINGLETON, 09136-7, 76384-5 #### [facility] ([id number]) [address] [facility], [address] [place] [address] #### 9 #### [facility] ([id number]) [address] [place] [address] 41006 Lymphocytes/100 WBC (Bld) 14.0 % Normal [facility] Comment on above: Performed By: #### Halima SINGLETON, 82266-0, 19262-5 #### [facility] ([id number]) [address] [facility], [address] [place] [address] #### 1983-11 #### [facility] ([id number]) [address] [place] [address] 63930 MCH (RBC) [Entitic mass] 30.6 pg Normal 27-34 [facility] Comment on above: Performed By: #### R ARELI, 21617-4, 72580-4 #### [facility] ([id number]) [address] [facility], [address] [place] [address] #### 1983-11 #### [facility] ([id number]) [address] [place] [address] 49362 MCHC (RBC) [Mass/Vol] 34.0 g/dL Normal 32-36 [facility] Comment on above: Performed By: #### Halima SINGLETON, 54762-7, 26184-4 #### [facility] ([id number]) [address] [facility], [address] [place] [address] #### 9 #### [facility] ([id number]) [address] [place] [address] 47619 MCV (RBC) [Entitic vol] 90 fL Normal 80-100 [facility] Comment on above: Performed By: #### Halima SINGLETON, 23827-0, 95638-9 #### [facility] ([id number]) [address] [facility], [address] [place] [address] #### 9 #### [facility] ([id number]) [address] [place] [address] 62364 Monocytes (Bld) [#/Vol] 0.7 10*3/uL Normal 0-0.9 [facility] Comment on above: Performed By: #### Halima SINGLETON, 46988-5, 29079-3 #### [facility] ([id number]) [address] [facility], [address] [place] [address] #### 9 #### [facility] ([id number]) [address] [place] [address] 90348 Monocytes/100 WBC (Bld) 8.1 % Normal [facility] Comment on above: Performed By: #### Halima SINGLETON, 44193-6, 00624-9 #### [facility] ([id number]) [address] [facility], [address] [place] [address] #### 9 #### [facility] ([id number]) [address] [place] [address] 43625 Neutrophils/100 WBC (Bld) 76.3 % Normal [facility] Comment on above: Performed By: #### Halima SINGLETON, 55018-6, 00439-9 #### [facility] ([id number]) [address], [address] [place] [address] #### 1986-9 #### [facility] ([id number]) [address] [place] [address] 22733 Platelet mean volume (Bld) [Entitic vol] 8.7 fL Normal 7-12 [facility] Comment on above: Performed By: #### Halima SINGLETON, 94036-7, 37869-6 #### [facility] ([id number]) [address], [address] [place] [address] #### 1983-9 #### [facility] ([id number]) [address] [place] [address] 84252 Platelets (Bld) [#/Vol] 238 10*3/uL Normal 150-450 [facility] Comment on above: Performed By: #### Halima SINGLETON, 98224-9, 02256-6 #### [facility] ([id number]) [address], [address] [place] [address] #### 1984-9 #### [facility] ([id number]) [address] [place] [address] 31534 RBC COUNT 3.87 X10E12/L Normal 3.80-5.20 [facility] Comment on above: Performed By: #### Halima SINGLETON, 46852-5, 23531-0 #### [facility] ([id number]) [address], [address] [place] [address] #### 1986-9 #### [facility] ([id number]) [address] [place] [address] 16225 WBC (Bld) [#/Vol] 9.0 10*3/uL Normal 4.0-11.0 [facility] Comment on above: Performed By: #### Halima SINGLETON, 96435-4, 91398-7 #### [facility] ([id number]) [address], [address] [place] [address] #### 1984-9 #### [facility] ([id number]) [address] [place] [address] 16411 COMPREHENSIVE METABOLIC PANE Florian 05-13-2023 Albumin [Mass/Vol] 3.6 g/dL Normal 3.2-5.3 [facility] Comment on above: Performed By: #### Halima SINGLETON, 31650-3, 79667-0 #### [facility] ([id number]) [address], [address] [place] [address] #### 1985-9 #### [facility] ([id number]) [address] [place] [address] 08473 ALP [Catalytic activity/Vol] 80 U/L Normal 39-130 [facility] Comment on above: Performed By: #### Halima SINGLETON, 53221-5, 99035-6 #### [facility] ([id number]) [address], [address] [place] [address] #### 1983-9 #### [facility] ([id number]) [address] [place] [address] 30204 ALT [Catalytic activity/Vol] 15 U/L Normal 0-31 [facility] Comment on above: Performed By: #### Halima SINGLETON, 42551-9, 53456-4 #### [facility] ([id number]) [address], [address] [place] [address] #### 1983-9 #### [facility] ([id number]) [address] [place] [address] 93351 Anion gap [Moles/Vol] 7 mmol/L Normal 5-15 [facility] Comment on above: Performed By: #### Halima SINGLETON, 36546-0, 37424-9 #### [facility] ([id number]) [address], [address] [place] [address] #### 1983-9 #### [facility] ([id number]) [address] [place] [address] 97557 AST [Catalytic activity/Vol] 16 U/L Normal 0-41 [facility] Comment on above: Performed By: #### Halima SINGLETON, 62456-9, 10094-7 #### [facility] ([id number]) [address], [address] [place] [address] #### 1983-9 #### [facility] ([id number]) [address] [place] [address] 84295 Bilirubin [Mass/Vol] 0.5 mg/dL Normal 0.3-1.2 [facility] Comment on above: Performed By: #### Halima SINGLETON, 17535-2, 53859-7 #### [facility] ([id number]) [address], [address] [place] [address] #### 1983-9 #### [facility] ([id number]) [address] [place] [address] 71493 Calcium [Mass/Vol] 9.0 mg/dL Normal 8.5-10.5 [facility] Comment on above: Performed By: #### Halima SINGLETON, 88171-9, 98805-1 #### [facility] ([id number]) [address] [place] [address] #### 1983-9 #### [facility] ([id number]) [address] [place] [address] Chloride [Moles/Vol] 105 mmol/L Normal 98-109 [facility] Comment on above: Performed By: #### Halima SINGLETON, 31522-0, 68299-0 #### [facility] ([id number]) [address] [facility], [address] [place] [address] #### 1984-9 #### [facility] ([id number]) [address] [place] [address] 74904 CO2 [Moles/Vol] 27 mmol/L Normal 22-32 [facility] Comment on above: Performed By: #### Halima SINGLETON, 47901-9, 70819-3 #### [facility] ([id number]) [address] [facility], [address] [place] [address] #### 1984-9 #### [facility] ([id number]) [address] [place] [address] 43462 Creatinine [Mass/Vol] 1.15 mg/dL High 0.40-1.00 [facility] Comment on above: Result Comment: METH OD TRACEABLE TO IDMS STANDARD Performed By: #### Halima SINGLETON, 20313-8, 34013-0 #### [facility] ([id number]) [address] [facility], [address] [place] [address] #### 1984-9 #### [facility] ([id number]) [address] [place] [address] 58625 GFR/1.73 sq M.predicted among non-blacks MDRD (S/P/Bld) [Vol rate/Area] 48 mL/min/{1.73_m2} Low >59 [facility] Comment on above: Result Comment: Reported eGFR is based on the CKD-EPI 2020 equation that does not use a race coefficient. Performed By: #### Halima SINGLETON, 88838-0, 60345-7 #### [facility] ([id number]) [address] [facility], [address] [place] [address] #### 1984-9 #### [facility] ([id number]) [address] [place] [address] 83943 Glucose [Mass/Vol] 119 mg/dL High 65-99 [facility] Comment on above: Performed By: #### Halima SINGLETON, 15535-2, 25234-8 #### [facility] ([id number]) [address] [facility], [address] [place] [address] #### 1984-9 #### [facility] ([id number]) [address] [place] [address] 12919 Potassium [Moles/Vol] 3.9 mmol/L Normal 3.5-5.0 [facility] Comment on above: Performed By: #### Halima SINGLETON, 59441-1, 99247-9 #### [facility] ([id number]) [address] [facility], [address] [place] [address] #### 1984-9 #### [facility] ([id number]) [address] [place] [address] 31028 Protein [Mass/Vol] 7.0 g/dL Normal 6.0-8.0 [facility] Comment on above: Performed By: #### Halima SINGLETON, 35759-3, 80349-8 #### [facility] ([id number]) [address] [facility], [address] [place] [address] #### 1984-9 #### [facility] ([id number]) [address] [place] [address] 98684 Sodium [Moles/Vol] 139 mmol/L Normal 134-146 [facility] Comment on above: Performed By: #### Halima SINGLETON, 11207-7, 33896-5 #### [facility] ([id number]) [address] [place] [address], [address] [place] [address] #### 1984-9 #### [facility] ([id number]) [address] [place] [address] 96804 Urea nitrogen [Mass/Vol] 22 mg/dL Normal 5-27 [facility] Comment on above: Performed By: #### R ARELI, 59189-5, 82635-4 #### [facility] ([id number]) [address] [place] [address], [address] [place] [address] #### 1984-9 #### [facility] ([id number]) [address] [place] [address] 18004 Glucose Glucometer (BldC) [M ass/Vol]on 05-13-2023 Glucose [Mass/Vol] 200 mg/dL High 65-99 [facility] Glucose [Mass/Vol] 183 mg/dL High 65-99 [facility] Glucose [Mass/Vol] 182 mg/dL High 65-99 [facility] MAGNESIUMon 05-13-2023 Magnesium [Mass/Vol] 2.0 mg/dL Normal 1.8-2.6 [facility] Comment on above: Performed By: #### Halima SINGLETON, 33665-8, 35266-3 #### [facility] ([id number]) [address] [place] [address], [facility] [address] [place] [address] #### 1984-9 #### [facility] ([id number]) [address] [place] [address] 06384 NM HEPATOBILIARY SYS IMAGING WO PHARMACOLOGIC AGENTon 05-13-2023 NM HEPATOBILIARY SYS IMAGING WO PHARMACOLOGIC AGENT NM HEPATOBILIARY SYS IMAGING WO PHARMACOLOGIC AGENT HISTORY: An 83-year-old female with the history of the gallstones and recurrent biliary colic. Gallbladder dyskinesia is suspected. TECHNIQUE: Radionuclide hepatobiliary imaging COMPARISON: Comparison is made with the CT scan of the abdomen and pelvis and ultrasound examination of the abdomen of 05/12/2023. FINDINGS: Multiple serial static hepatobiliary images are obtained after intravenous administration of 5.0 mCi of technetium 99m mebrofenin. Liver is normal in morphology and activity. There is prompt visualization of activity in the intrahepatic biliary ducts and the common bile duct. Minimal activity seen in the proximal small bowels at 60 minutes of examination. Gallbladder is visualized at 25 minutes examination consistent with patency of the duct. IMPRESSION: * No evidence of acute cholecystitis or biliary obstruction. * Normal hepatic morphology and activity. * Gallbladder ejection fraction was not obtained due to study performed without administration of pharmacologic agent. Finalized by Bobby Brooke MD on 05/13/2023 9:57 AM Normal [facility] Surgical Pathologyon 024 Surgical Pathology Normal [facility] Comment on above: Result Comment: [facility] [address] [place] [address] Surgical Pathology Consultation Patient Name:ARIANE WILL:1940 (Age: 83)Gender:FTaken:05/13/2023eported:05/18/2023hysician(s):Debi Santiago MD ([phone])Copy To: Rec. #:[id number]: #[id number] Final Pathologic Diagnosis Gallbladder: Chronic cholecystitis. Cholelithiasis. Negative for dysplasia or malignancy. Report Electronically Signed Out st/05/18/2023Sarah Stephens MD Interpretation performed at [facility], [address] [facility] [address], License number: [id number]. Clinical History Biliary colic. Gross Description Received in formalin labeled SUMAN, gallbladder is an intact gallbladder that measures, 7.1 x 2.6 x 1.5 cm with a cystic duct of 0.1 cm. No lymph node is identified adjacent to the cystic duct. The serosal surface is green with an area of green granular soft tissue consistent with hepatic bed. The gallbladder is opened and filled with green viscous bile. Brown smooth calculi are identified within the lumen, 0.2-0.3 cm. The mucosa is green and velvety with yellow striations. The gallbladder wall is 0.1-0.2 cm in thickness. 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 cross-sections are submitted within a single cassette. (1, ss, [id number],m2) DM. dm05/16/2023WAK Specimen(s) Received Gallbladder Fee Codes(s): 1; 82956 BLOOD CULTUREon 05-12-2023 Bacteria identified Aer cx Nom (Bld) CULTURE RESULTS NO GROWTH 5 DAYS Normal [facility] Comment on above: Performed By: #### R ENAL, 82368-4, 41279-4 #### [facility] ([id number]) [address] [facility], [address] [place] [address] #### 1984-9 #### [facility] ([id number]) [address] [place] [address] 65944 Bacteria identified Aer cx Nom (Bld) CULTURE RESULTS NO GROWTH 5 DAYS Normal [facility] Comment on above: Performed By: #### R ENAL, 62900-1, 86127-4 #### [facility] ([id number]) [address] [place] [address], [address] [place] [address] #### 1984-9 #### [facility] ([id number]) [address] [place] [address] 65168 CBC AND AUTO DIFFon 05-12-19 24 ABSOLUTE BASOPHIL 0.1 X10E9/L Normal 0.0-0.2 [facility] Comment on above: Performed By: #### C BCA, CMP, 3040-3, 55477-4 #### [facility] ([id number]) [address] [place] [address] 32427 ABSOLUTE NEUTROPHIL 5.6 X10E9/L Normal 1.5-6.6 [facility] Comment on above: Performed By: #### C BCA, CMP, 3040-3, 31678-3 #### [facility] ([id number]) [address] [place] [address] 53468 Basophils/100 WBC (Bld) 0.7 % Normal [facility] Comment on above: Performed By: #### C MADHU CMP, 3040-3, 04928-2 #### [facility] ([id number]) [address] [place] [address] 96562 Eosinophils (Bld) [#/Vol] 0.2 10*3/uL Normal 0.0-0.4 [facility] Comment on above: Performed By: #### C MADHU, CMP, 3040-3, 81294-3 #### [facility] ([id number]) [address] [place] [address] 38159 Eosinophils/100 WBC (Bld) 3.2 % Normal [facility] Comment on above: Performed By: #### Maria De Jesus LEUNG CMP, 3040-3, 96402-8 #### [facility] ([id number]) [address] [place] [address] 52563 Erythrocyte distribution width (RBC) [Ratio] 14.3 % Normal 11.5-15.0 [facility] Comment on above: Performed By: #### Maria De Jesus LEUNG CMP, 3040-3, 08841-5 #### [facility] ([id number]) [address] [place] [address] 08102 Hematocrit (Bld) [Volume fraction] 38.0 % Normal 35-47 [facility] Comment on above: Performed By: #### Maria De Jesus LEUNG, CMP, 3040-3, 98262-7 #### [facility] ([id number]) [address] [place] [address] 66197 Hemoglobin (Bld) [Mass/Vol] 12.8 g/dL Normal 11.7-15.5 [facility] Comment on above: Performed By: #### Maria De Jesus LEUNG CMP, 3040-3, 73203-9 #### [facility] ([id number]) [address] [place] [address] 37425 Lymphocytes (Bld) [#/Vol] 1.0 10*3/uL Normal 1.0-3.5 [facility] Comment on above: Performed By: #### C MADHU, CMP, 3040-3, 16805-3 #### [facility] ([id number]) [address] [place] [address] 86675 Lymphocytes/100 WBC (Bld) 13.5 % Normal [facility] Comment on above: Performed By: #### C BCA, CMP, 3040-3, 71052-7 #### [facility] ([id number]) [address] [place] [address] 96121 MCH (RBC) [Entitic mass] 30.3 pg Normal 27-34 [facility] Comment on above: Performed By: #### C MADHU, CMP, 3040-3, 29502-3 #### [facility] ([id number]) [address] [place] [address] 39043 MCHC (RBC) [Mass/Vol] 33.7 g/dL Normal 32-36 [facility] Comment on above: Performed By: #### C MADHU, CMP, 3040-3, 03412-9 #### [facility] ([id number]) [address] [place] [address] 20152 MCV (RBC) [Entitic vol] 90 fL Normal 80-100 [facility] Comment on above: Performed By: #### C BCA, CMP, 3040-3, 97504-2 #### [facility] ([id number]) [address] [place] [address] 61952 Monocytes (Bld) [#/Vol] 0.6 10*3/uL Normal 0-0.9 [facility] Comment on above: Performed By: #### C BCA, CMP, 3040-3, 97393-6 #### [facility] ([id number]) [address] [place] [address], [place] [address] Monocytes/100 WBC (Bld) 8.1 % Normal [facility] Comment on above: Performed By: #### C BCA, CMP, 3040-3, 79118-0 #### [facility] ([id number]) [address] [place] [address] 11921 Neutrophils/100 WBC (Bld) 74.5 % Normal [facility] Comment on above: Performed By: #### C BCA, CMP, 3040-3, 30283-4 #### [facility] ([id number]) [address] [place] [address] 21662 Platelet mean volume (Bld) [Entitic vol] 8.5 fL Normal 7-12 [facility] Comment on above: Performed By: #### Maria De Jesus BCA, CMP, 3040-3, 45421-8 #### [facility] ([id number]) [address] [place] [address] 38083 Platelets (Bld) [#/Vol] 250 10*3/uL Normal 150-450 [facility] Comment on above: Performed By: #### C BCA, CMP, 3040-3, 07051-3 #### [facility] ([id number]) [address] [place] [address] 67018 RBC COUNT 4.23 X10E12/L Normal 3.80-5.20 [facility] Comment on above: Performed By: #### C BCA, CMP, 3040-3, 42349-7 #### [facility] ([id number]) [address] [place] [address] 67252 WBC (Bld) [#/Vol] 7.5 10*3/uL Normal 4.0-11.0 [facility] Comment on above: Performed By: #### C BCA, CMP, 3040-3, 54912-7 #### [facility] ([id number]) [address] [place] [address] COMPREHENSIVE METABOLIC PANE Florian 05-12-2023 Albumin [Mass/Vol] 4.2 g/dL Normal 3.2-5.3 [facility] Comment on above: Performed By: #### C BCA, CMP, 3040-3, 12512-3 #### [facility] ([id number]) [address] [place] [address] 74151 ALP [Catalytic activity/Vol] 84 U/L Normal 39-130 [facility] Comment on above: Performed By: #### C BCA, CMP, 3040-3, 84170-0 #### [facility] ([id number]) [address] [place] [address] 95638 ALT [Catalytic activity/Vol] 16 U/L Normal 0-31 [facility] Comment on above: Performed By: #### C BCA, CMP, 3040-3, 52682-7 #### [facility] ([id number]) [address] [place] [address] 95328 Anion gap [Moles/Vol] 4 mmol/L Low 5-15 [facility] Comment on above: Performed By: #### C BCA, CMP, 3040-3, 63823-8 #### [facility] ([id number]) [address] [place] [address] 96437 AST [Catalytic activity/Vol] 17 U/L Normal 0-41 [facility] Comment on above: Performed By: #### C BCA, CMP, 3040-3, 24080-7 #### [facility] ([id number]) [address] [place] [address] 82572 Bilirubin [Mass/Vol] 0.6 mg/dL Normal 0.3-1.2 [facility] Comment on above: Performed By: #### C BCA, CMP, 3040-3, 40860-0 #### [facility] ([id number]) [address] [place] [address] 80170 Calcium [Mass/Vol] 9.3 mg/dL Normal 8.5-10.5 [facility] Comment on above: Performed By: #### C XENIA LEUNG, 3040-3, 98169-4 #### [facility] ([id number]) [address] [place] [address] 68423 Chloride [Moles/Vol] 105 mmol/L Normal 98-109 [facility] Comment on above: Performed By: #### C XENIA LEUNG, 3040-3, 13454-7 #### [facility] ([id number]) [address] [place] [address] 47018 CO2 [Moles/Vol] 26 mmol/L Normal 22-32 [facility] Comment on above: Performed By: #### C XENIA LEUNG, 3040-3, 27672-1 #### [facility] ([id number]) [address] [place] [address] 29880 Creatinine [Mass/Vol] 1.28 mg/dL High 0.40-1.00 [facility] Comment on above: Result Comment: METH OD TRACEABLE TO IDMS STANDARD Performed By: #### C XENIA LEUNG, 3040-3, 93899-3 #### [facility] ([id number]) [address] [place] [address] 01876 GFR/1.73 sq M.predicted among non-blacks MDRD (S/P/Bld) [Vol rate/Area] 42 mL/min/{1.73_m2} Low >59 [facility] Comment on above: Result Comment: Reported eGFR is based on the CKD-EPI 2020 equation that does not use a race coefficient. Performed By: #### C XENIA LEUNG, 3040-3, 86978-2 #### [facility] ([id number]) [address] [place] [address] 45053 Glucose [Mass/Vol] 182 mg/dL High 65-99 [facility] Comment on above: Performed By: #### C BCA, CMP, 3040-3, 36217-1 #### [facility] ([id number]) [address] [place] [address] 48803 Potassium [Moles/Vol] 4.4 mmol/L Normal 3.5-5.0 [facility] Comment on above: Performed By: #### C BCA, CMP, 3040-3, 61273-0 #### [facility] ([id number]) [address] [place] [address] 55764 Protein [Mass/Vol] 7.7 g/dL Normal 6.0-8.0 [facility] Comment on above: Performed By: #### C MADHU CMP, 3040-3, 19236-0 #### [facility] ([id number]) [address] [place] [address] 56155 Sodium [Moles/Vol] 135 mmol/L Normal 134-146 [facility] Comment on above: Performed By: #### C BCA, CMP, 3040-3, 21534-6 #### [facility] ([id number]) [address] [place] [address] 63625 Urea nitrogen [Mass/Vol] 30 mg/dL High 5-27 [facility] Comment on above: Performed By: #### C BCA, CMP, 3040-3, 54475-4 #### [facility] ([id number]) [address] [place] [address] ABDOMEN AND PELVIS W CONT on 05-12-2023 CT ABDOMEN AND PELVIS W CONT CT ABDOMEN AND PELVIS W CONT CLINICAL HISTORY: . Abdominal pain, acute, nonlocalized; Cholelithiasis TECHNIQUE/PROCEDURE: CT abdomen and pelvis with intravenous contrast. All CT scans at this facility use dose modulation, iterative reconstruction, and/or weight based dosing when appropriate to reduce radiation dose to as low as reasonably achievable COMPARISON: 11/23/2021 FINDINGS: Lung bases with minimal bibasilar atelectasis. Heart size is normal. No pericardial effusion. Normal hepatic morphology. No suspicious focal intrahepatic lesions. The gallbladder is present. No biliary dilatation portal vein thrombosis. The pancreas and spleen are within normal limits. The adrenal glands are unremarkable. There is mild to moderate bilateral renal parenchymal atrophy. There are multiple low-attenuation lesions without suspicious imaging features to recommend additional follow-up imaging. Urinary bladder is normal. Uterus and ovaries are atrophic. Abdominal aorta nonaneurysmal. IVC right-sided. No enlarged abdominal or pelvic lymph nodes are identified. No bowel dilatation. No free air or free fluid. No peritoneal nodularity. There is an umbilical hernia containing noninflamed fat and nondilated bowel. Colonic diverticulosis, right-sided. Circumferential wall thickening is noted in the distal esophagus. No aggressive osseous lesions or fractures are identified. Degenerative changes are age compatible. IMPRESSION: * Mild diffuse distal esophageal wall thickening likely related to the history of vomiting and/or esophagitis. * Umbilical hernia containing nondilated bowel. Finalized by Mayank Wilks MD on 05/12/2023 2:14 PM Normal [facility] Glucose Glucometer (BldC) [M ass/Vol]on 05-12-2023 Glucose [Mass/Vol] 160 mg/dL High 65-99 [facility] Glucose [Mass/Vol] 191 mg/dL High 65-99 [facility] LIPASEon 05-12-2023 Lipase [Catalytic activity/Vol] 26 U/L Normal 17-40 [facility] Comment on above: Performed By: #### C MADHU CMP, 3040-3, 97929-8 #### [facility] ([id number]) [address] [place] [address] 95353 TROPONIN Ion 05-12-2023 Troponin I.cardiac [Mass/Vol] 0.01 ng/mL Normal 0.00-0.04 [facility] Comment on above: Performed By: #### C MADHU CMP, 3040-3, 41008-4 #### [facility] ([id number]) [address] [place] [address] 58026 URINE CULTUREon 05-12-2023 Bacteria identified Cx Nom (U) CULTURE RESULTS MULTIPLE SPECIES PRESENT. PROBABLE COLLECTION CONTAMINATION. SUGGEST REPEAT SPECIMEN. Normal [facility] Comment on above: Performed By: #### Halima SINGLETON, 08885-6, 33569-4 #### [facility] ([id number]) [address], [address] [place] [address] #### 9 #### [facility] ([id number]) [address] [place] [address] 97275 URN MACROSCOPIC NURon 2023 BILIRUBIN JEFF Negative Normal NEG [facility] Comment on above: Performed By: #### Halima SINGLETON, 17762-9, 25544-3 #### [facility] ([id number]) [address], [address] [place] [address] #### 9 #### [facility] ([id number]) [address] [place] [address] 25898 BLOOD/HGB JEFF Negative Normal NEG [facility] Comment on above: Performed By: #### Halima SINGLETON, 28383-7, 85186-9 #### [facility] ([id number]) [address], [address] [place] [address] #### 9 #### [facility] ([id number]) [address] [place] [address] 31115 GLUCOSE JEFF Negative Normal NEG [facility] Comment on above: Performed By: #### Halima SINGLETON, 97880-2, 83587-9 #### [facility] ([id number]) [address] [place] [address] #### 1983-11 #### [facility] ([id number]) [address] [place] [address] 15685 KETONES JEFF Negative Normal NEG [facility] Comment on above: Performed By: #### Halima SINGLETON, 11113-6, 53271-0 #### [facility] ([id number]) [address] [place] [address] #### 1983-11 #### [facility] ([id number]) [address] [place] [address] 99422 LEUKOCYTE ESTERASE JEFF Trace Abnormal NEG [facility] Comment on above: Performed By: #### R ARELI, 23673-8, 55939-4 #### [facility] ([id number]) [address] [facility], [address] [place] [address] #### 1983-11 #### [facility] ([id number]) [address] [place] [address] 53432 NITRITE JEFF Positive Abnormal NEG [facility] Comment on above: Performed By: #### Halima SINGLETON, 62729-8, #### [facility] ([id number]) [address] [facility], [address] [place] [address] #### 1983-11 #### [facility] ([id number]) [address] [place] [address] 31406 PH JEFF 5.5 Normal 5.0-8.5 [facility] Comment on above: Performed By: #### Halima SINGLETON, 81209-6, #### [facility] ([id number]) [address] [place] [address] #### 1983-11 #### [facility] ([id number]) [address] [place] [address] 78719 PROTEIN JEFF Negative Normal NEG [facility] Comment on above: Performed By: #### R ENDONAVAN, 85722-3, 28376-7 #### [facility] ([id number]) [address] [place] [address] #### 1983-11 #### [facility] ([id number]) [address] [facility], [place] [address] SPECIFIC GRAVITY JEFF 1.020 Normal 1.003-1.035 [facility] Comment on above: Performed By: #### R ARELI, 94302-6, 41458-7 #### [facility] ([id number]) [address] [facility], [address] [place] [address] #### 1984-9 #### [facility] ([id number]) [address] [facility], [place] [address] UROBILINOGEN JEFF 0.2 eu/dL Normal <1.1 [facility] Comment on above: Performed By: #### R ARELI, 47235-6, 74114-5 #### [facility] ([id number]) [address] [facility], [address] [place] [address] #### 1984-9 #### [facility] ([id number]) [address] [place] [address], [place] [address] US ABDOMEN LMTDon 05-12-2023 US ABDOMEN LMTD US ABDOMEN LMTD ABDOMEN LIMITED ULTRASOUND HISTORY: Right upper quadrant pain COMPARISON: 11/23/2021 FINDINGS: Pancreas: Visualized portions of the pancreatic head and body are unremarkable. Diffusely increased hepatic echogenicity compatible with hepatocellular disease, probably secondary to steatosis. Within these limits, no focal hepatic lesion. No intrahepatic biliary dilatation. Gallstones and layering debris, no wall thickening or adjacent fluid. Gallbladder does appear slightly distended. Common duct measures 3 mm, within normal limits for patient's provided age. No visualized ascites. Incidentally noted right renal cyst measuring 3.5 x 3.1 cm, no follow-up needed. _ IMPRESSION: 1. Gallstones and debris with subtle distention however no wall thickening or adjacent fluid. Depending on clinical suspicion for acute or chronic cholecystitis consider HIDA evaluation. 2. Findings of hepatic steatosis. Finalized by Barry Sewell MD on 05/12/2023 11:55 AM Normal [facility] BI MAMMOGRAM SCREENING TOMOS YNTNIKOIS BILATERALon 04-29-2023 BI MAMMOGRAM SCREENING TOMOSYNTHESIS BILATERAL This is a summary report. The complete report is available in the patient's medical record. If you cannot access the medical record, please contact the sending organization for a detailed fax or copy. EXAMINATION: BI MAMMOGRAM SCREENING TOMOSYNTHESIS BILATERAL CLINICAL HISTORY:screening mammogram COMPARISON: April 14, 2022. RESULT: Digital mammography and 3D tomosynthesis of bilateral breasts was performed. Density: Scattered fibroglandular density [2] Overall appearance is stable. Typically benign calcifications. There is no suspicious mass, asymmetry, architectural distortion, or calcification IMPRESSION: BIRADS 2 - Benign Follow-up: Routine Screening Mamm Board Certified Radiologists. Accredited by the ACR and FDA. MAMMOGRAPHY IS VERY IMPORTANT TO YOUR HEALTH. THE [place] [employer] GUIDELINES RECOMMEND THAT WOMEN 40 YEARS OF AGE AND OLDER SHOULD HAVE A MAMMOGRAM EVERY YEAR. A REMINDER LETTER WILL BE SENT AT THE APPROPRIATE TIME. THIS FACILITY UTILIZES A REMINDER SYSTEM TO ENSURE ALL PATIENTS RECEIVE REMINDER NOTIFICATIONS AT THE APPROPRIATE TIME BASED ON THE RECOMMENDATIONS OF THIS EXAM. THIS INCLUDES REMINDERS FOR ROUTINE SCREENING MAMMOGRAMS, DIAGNOSTIC MAMMOGRAMS IN WHICH THE PATIENT IS ASKED TO RETURN FOR ADDITIONAL VIEWS, OR OTHER BREAST IMAGING INTERVENTIONS WHEN APPROPRIATE. THE PATIENT WILL BE PLACED IN THE APPROPRIATE REMINDER SYSTEM INCLUDING A REMINDER AT THE APPROPRIATE TIME FOR ANY PENDING ADDITIONAL VIEWS. TRANSCRIBED BY: ELECTRONICALLY SIGNED BY: Pete Cuevas MD Normal Not Available C peptide [Mass/Vol]on 04-12 C PEPTIDE 5.20 ng/mL High 0.81-3.85 [facility] Comment on above: Result Comment: NOTE Test Performed By: [facility] [address] [place] [address] Woodyard Operator: Zechariah Melchor III, M.D. CLIA #[id number] Performed By: #### Halima SINGLETON, 89815-2, 08675-2 #### [facility] ([id number]) [address] [place] [address], [address] [place] [address] #### 1984-9 #### [facility] ([id number]) [address] [place] [address] Lipid 1996 panelon 4 Cholesterol [Mass/Vol] 130 mg/dL Low 150-200 Pr [facility] Comment on above: Performed By: #### Halima SINGLETON, 74785-8, 81422-6 #### [facility] ([id number]) [address], [address] [place] [address] #### 1984-9 #### [facility] ([id number]) [address] [place] [address] Cholesterol in HDL [Mass/Vol] 47 mg/dL Normal >39 [facility] Comment on above: Result Comment: HDL <40 mg/dL - High Risk HDL > or = 40mg/dL- Desirable HDL >60 mg/dL - Negative Risk Performed By: ###Sully SINGLETON, 62627-7, 27624-5 #### [facility] ([id number]) [address], [address] [place] [address] #### 1984-9 #### [facility] ([id number]) [address] [place] [address] Cholesterol in LDL [Mass/Vol] 38 mg/dL Normal <130 [facility] Comment on above: Result Comment: LDL <100 mg/dL - Desirable LDL >160 mg/dL - High Risk Performed By: ###Sully SINGLETON, 56739-2, 77025-1 #### [facility] ([id number]) [address], [address] [place] [address] #### 1984-9 #### [facility] ([id number]) [address] [place] [address] Cholesterol in VLDL [Mass/Vol] 45 mg/dL High 0-30 [facility] Comment on above: Performed By: #### Halima SINGLETON, 35815-4, 77816-3 #### [facility] ([id number]) [address] [facility], [address] [place] [address] #### 1984-9 #### [facility] ([id number]) [address] [place] [address] CHOLESTEROL:HDL 2.8 Normal 1.0-5.0 [facility] Comment on above: Performed By: #### Halima SINGLETON, 31792-4, 19343-6 #### [facility] ([id number]) [address] [facility], [address] [place] [address] #### 1983-9 #### [facility] ([id number]) [address] [place] [address] Triglyceride [Mass/Vol] 227 mg/dL High 27-150 [facility] Comment on above: Performed By: #### Halima SINGLETON, 08239-8, 89519-1 #### [facility] ([id number]) [address] [facility], [address] [place] [address] #### 1984-9 #### [facility] ([id number]) [address] [place] [address] MICROALBUMIN - ALBUMIN:CREAT ININE URINE RATIOon 04-12-2023 ALB/CREAT RATIO 26.8 mg/g creat Normal 0.0-30.0 [facility] Comment on above: Performed By: #### M ALBU #### [facility] ([id number]) [address] [facility], [address] [place] [address] Albumin DL <= 20 mg/L (U) [Mass/Vol] 2.7 mg/dL High 0.0-1.9 [facility] Comment on above: Performed By: #### M ALBU #### [facility] ([id number]) [address], [address] [place] [address] URINE CREAT 100.56 mg/dL Normal [facility] Comment on above: Performed By: #### M ALBU #### [facility] ([id number]) [address], [address] [place] [address] RENAL PANELon 04-12-2023 Albumin [Mass/Vol] 4.2 g/dL Normal 3.2-5.3 [facility] Comment on above: Performed By: #### Halima SINGLETON, 78425-8, 13567-7 #### [facility] ([id number]) [address] [facility], [address] [place] [address] #### 1983-9 #### [facility] ([id number]) [address] [place] [address] Anion gap [Moles/Vol] 10 mmol/L Normal 5-15 [facility] Comment on above: Performed By: #### Halima SINGLETON, 73235-9, 28620-4 #### [facility] ([id number]) [address], [address] [place] [address] #### 1983-9 #### [facility] ([id number]) [address] [place] [address] Calcium [Mass/Vol] 10.0 mg/dL Normal 8.5-10.5 [facility] Comment on above: Performed By: #### Halima SINGLETON, 32574-4, 01199-3 #### [facility] ([id number]) [address], [address] [place] [address] #### 1983-9 #### [facility] ([id number]) [address] [place] [address] Chloride [Moles/Vol] 102 mmol/L Normal 98-109 [facility] Comment on above: Performed By: #### Halima SINGLETON, 45519-4, 85126-8 #### [facility] ([id number]) [address] [facility], [address] [place] [address] #### 1984-9 #### [facility] ([id number]) [address] [place] [address] CO2 [Moles/Vol] 29 mmol/L Normal 22-32 [facility] Comment on above: Performed By: #### Halima SINGLETON, 55177-5, 60984-8 #### [facility] ([id number]) [address] [facility], [address] [place] [address] #### 1984-9 #### [facility] ([id number]) [address] [place] [address] Creatinine [Mass/Vol] 1.28 mg/dL High 0.40-1.00 [facility] Comment on above: Result Comment: METH OD TRACEABLE TO IDMS STANDARD Performed By: #### Halima SINGLETON, 90983-4, 26709-0 #### [facility] ([id number]) [address] [facility], [address] [address] #### 1984-9 #### [facility] ([id number]) [address] [place] [address] GFR/1.73 sq M.predicted among non-blacks MDRD (S/P/Bld) [Vol rate/Area] 42 mL/min/{1.73_m2} Low >59 [facility] Comment on above: Result Comment: Reported eGFR is based on the CKD-EPI 2020 equation that does not use a race coefficient. Performed By: #### Halima SINGLETON, 34561-8, 50270-8 #### [facility] ([id number]) [address] [place] [address], [address] [place] [address] #### 1983-9 #### [facility] ([id number]) [address] [place] [address] Glucose [Mass/Vol] 147 mg/dL High 65-99 [facility] Comment on above: Performed By: #### R ARELI, 51899-2, 49763-1 #### [facility] ([id number]) [address] [place] [address], [address] [place] [address] #### 1983-9 #### [facility] ([id number]) [address] [place] [address] Phosphate [Mass/Vol] 3.5 mg/dL Normal 2.4-4.9 [facility] Comment on above: Performed By: #### Halima SINGLETON, 52642-3, 54056-1 #### [facility] ([id number]) [address] [place] [address], [facility] [address] [place] [address] #### 1983-9 #### [facility] ([id number]) [address] [place] [address] Potassium [Moles/Vol] 4.7 mmol/L Normal 3.5-5.0 [facility] Comment on above: Performed By: #### Halima SINGLETON, 39775-3, 61986-6 #### [facility] ([id number]) [address] [place] [address], [facility] [address] [place] [address] #### 1983-9 #### [facility] ([id number]) [address] [place] [address] Sodium [Moles/Vol] 141 mmol/L Normal 134-146 [facility] Comment on above: Performed By: #### R ARELI, 72549-6, 29633-7 #### [facility] ([id number]) [address] [place] [address], [address] [place] [address] #### 1984-9 #### [facility] ([id number]) [address] [place] [address] Urea nitrogen [Mass/Vol] 23 mg/dL Normal 5-27 [facility] Comment on above: Performed By: #### R ARELI, 06900-8, 98950-8 #### [facility] ([id number]) [address] [place] [address], [address] [place] [address] #### 1984-9 #### [facility] ([id number]) [address] [place] [address], [place] [address] Vitamin D+Metabolites [Mass/ Vol]on 04-12-2023 VITAMIN D 25 HYD TOT 31.5 ng/mL Normal 30-100 [facility] Comment on above: Result Comment: Vitamin D status 25 [place] Vitamin D Deficiency <20 ng/mL Insufficiency 20-29 ng/mL Sufficiency 30-100 ng/mL Toxicity >100 ng/mL NOTE: A pediatric reference range has not been established by the short piece handler of this kit. The [place] [employer] recommends a Vitamin D level of = or >20ng/mL in infants and children. Performed By: #### Halima ARELI, 92667-6, 13093-6 #### [facility] ([id number]) [address] [place] [address], [facility] [address] [place] [address] #### 1984-9 #### [facility] ([id number]) [address] [place] [address] MR lumbar spine wo goldy MR lumbar spine wo caridad [facility] [address] [address] MRI Report Signed Patient: Ariane Will MR#: [id number] : 1940 Acct:[id number] Age/Sex: 82 / F ADM Date: 01/20/23 Loc: [facility] Room: Type: [facility] Attending Dr: Teodoro Kelly MD Copies to: Teodoro Kelly MD Ordering Provider: Teodoro Kelly MD Date of Service: 01/20/23 MR/MR lumbar spine wo con: Lumbar radiculopathy;Chronic pain;Sacroiliitis;Lum bar degene MR lumbar spine wo con 01/20/2023 10:37 AM SIGNS AND SYMPTOMS: Sciatic pain PROTOCOL: Multiplanar multisequence MR images of the lumbar spine were obtained without IV contrast COMPARISON: 10/06/2022 FINDINGS: The bones of the lumbar spine are in anatomic alignment. There is preservation of vertebral body heights. There is moderate disc height loss at T12-L1, L2, L2-3, L3-4, and L4-5. The marrow signal is within normal limits. The conus terminates at the there is a broad-based disc bulge with facet hypertrophy. There is mild spinal canal narrowing with moderate bilateral neural foraminal narrowing. level. No epidural or paraspinous fluid collection is appreciated. There are simple cysts in the renal cortices bilaterally requiring no further follow-up. At T12-L1: There is a broad-based disc bulge with facet hypertrophy and ligamentum flavum thickening. There is moderate spinal canal stenosis with moderate to severe bilateral neural foraminal narrowing. At L1-L2: There is a circumferential disc bulge with facet hypertrophy and ligamentum flavum thickening. There is moderate spinal canal stenosis with mild to moderate left and moderate right neural foraminal stenosis. At L2-L3: There is a circumferential disc bulge with facet and ligament flavum degenerative change contributing to moderate spinal canal narrowing with moderate to severe bilateral neural foraminal narrowing. At L3-L4: There is a circumferential disc bulge with a focal central disc extrusion and cranial migration. There is severe narrowing of the spinal canal with moderate left and moderate severe right neural foraminal narrowing. This mild mass effect on the exiting right L3 nerve roots. There is mass effect on the traversing right L4 nerve roots. At L4-L5: There is a circumferential disc bulge with facet hypertrophy. There is mild spinal canal stenosis with At L5-S1: Mild bilateral neural foraminal narrowing. There is a broad-based disc bulge with facet hypertrophy. There is mild spinal canal narrowing. There is severe bilateral neural foraminal narrowing with mass effect on the exiting L5 nerve roots bilaterally. MR/MR lumbar spine wo con IMPRESSION: At L3-L4: There is a circumferential disc bulge with a focal central disc extrusion and cranial migration. There is severe narrowing of the spinal canal with moderate left and moderate severe right neural foraminal narrowing. This mild mass effect on the exiting right L3 nerve roots. There is mass effect on the traversing right L4 nerve roots. At L5-S1: Mild bilateral neural foraminal narrowing. There is a broad-based disc bulge with facet hypertrophy. There is mild spinal canal narrowing. There is severe bilateral neural foraminal narrowing with mass effect on the exiting L5 nerve roots bilaterally. Impression dictated by: Sabino Jimenes M.D.01/20/2023 3:36 PM Dictation Location: [place] [address] Transcribed By: [facility] 01/20/23 1536 Dictated By: Sabino Jimenes II, MD 01/20/23 1529 Signed By: 01/20/23 1536 [facility] XR HIP RT INJon 08-04-2022 XR HIP RT INJ EXAMINATION: XR HIP RT INJ HISTORY: Pain in right hip joint COMPARISON: No relevant comparison available. FLUOROSCOPY TIME: Fluoro time measures 1.5 minutes and 2 images were obtained. TECHNIQUE: A joint injection was performed in the usual sterile manner after obtaining informed consent. Standard level fluoroscopic mode of operation utilized. FINDINGS: JOINT: Right hip. NEEDLE: 22 gauge, 3.5 spinal needle. MEDICATION: 2cc buffered 1% lidocaine for subcutaneous anesthesia 2cc Omnipaque-300 iodinated contrast to visualize the joint space Mixture of Kenalog 40 mg, 0.5% Bupivacaine 2 mL and Omnipaque 300 4 mL was injected into the joint space. TECHNIQUE: Anterior approach with prior localization of the femoral artery. A single stick was successful in gaining access to the joint space. CLINICAL: Near complete resolution of hip pain following the injection. COMPLICATIONS: None. OTHER: Negative. IMPRESSION: 1. Successful right hip injection with complete resolution of pain. Electronically authenticated by: MARISA LEONARDO Date: 2022-08-04 11:28 Normal [facility] SCREENING MAMMOGRAM W/SANTA, BILATERAL*on 02-08-2023 SCREENING MAMMOGRAM W/SANTA, BILATERAL* COMPARISON: April 07, 2021, April 03, 2021, March 13, 2020 TECHNIQUE: 2D and 3D Tomosynthesis of the right and left breasts was performed. FINDINGS: Breast composition demonstrates scattered fibroglandular densities. Overall appearance is stable. Typically benign calcifications. No suspicious microcalcifications, asymmetry, architectural distortion, or associated features are present. IMPRESSION: BIRADS 2: Benign mammogram Board Certified Radiologist. Accredited by the ACR and FDA. MAMMOGRAPHY IS VERY IMPORTANT TO YOUR HEALTH. THE CURRENT [place] [employer] GUIDELINES RECOMMENDS ANNUAL MAMMOGRAPHY BEGINNING AT AGE 40 THIS FACILITY USES A REMINDER SYSTEM TO ENSURE ALL PATIENTS RECEIVE REMINDER NOTIFICATIONS AT THE APPROPRIATE TIME BASED ON THE RECOMMENDATIONS OF THIS EXAM. Report reported and signed by Pete Cuevas on 04/15/2022 0702 Normal [facility] XR Hip Complete Right*on XR Hip Complete Right* FINDINGS: Minimal superior hip joint space loss. Moderate size bilateral pincer deformities. Bilateral acetabular over coverage. Small right CAM deformity. IMPRESSION: 1. Bilateral arthritis. Report reported and signed by Pete Cuevas on 11/05/2021 1532 Normal [facility] Comprehensive Metabolic Pane florian 07-03-2021 Albumin [Mass/Vol] 4.3 g/dL Normal 3.6-5.1 [facility] Comment on above: Performed By: #### C MP #### [facility] [address] [place], [place] [id number] Albumin/Globulin [Mass ratio] 1.7 {ratio} Normal 1.0-2.5 [facility] Comment on above: Performed By: #### C MP #### [facility] [address] [place], [place] [id number] ALP [Catalytic activity/Vol] 83 U/L Normal 35-119 [facility] Comment on above: Performed By: #### C MP #### [facility] [address] [place], [place] [id number] ALT [Catalytic activity/Vol] 23 U/L Normal 6-[address] [facility] Specialist Comment on above: Result Comment: 02/04 Female reference range changed. Performed By: #### C MP #### [facility] [address] [place], [place] [id number] Anion gap [Moles/Vol] 13 mmol/L Normal 12-20 [facility] Comment on above: Result Comment: [employer] ctive 03/12/2019 reference range changed. Performed By: #### C MP #### [facility] [address] [place], [place] [id number] AST [Catalytic activity/Vol] 22 U/L Normal 9-34 [facility] Comment on above: Performed By: #### C MP #### [facility] [address] [place], [place] [id number] Bilirubin [Mass/Vol] 0.36 mg/dL Normal 0.30-1.20 [facility] Comment on above: Performed By: #### C MP #### [facility] [address] [place], [place] [id number] BUN/CREA 17 Ratio Normal 6-22 [facility] Comment on above: Performed By: #### C MP #### [facility] [address] [place], [place] [id number] Calcium [Mass/Vol] 9.8 mg/dL Normal 8.6-10.2 [facility] Comment on above: Performed By: #### C MP #### [facility] [address] [place], [place] [id number] Chloride [Moles/Vol] 103 mmol/L Normal 98-107 [facility] Comment on above: Performed By: #### C MP #### [facility] [address] [place], [place] [id number] CO2 [Moles/Vol] 28 mmol/L Normal 20-31 [facility] Comment on above: Performed By: #### C MP #### [facility] [address] [place], [place] [id number] Creatinine [Mass/Vol] 1.3 mg/dL Normal 0.6-1.4 [facility] Comment on above: Performed By: #### C MP #### [facility] [address] [place], [place] [id number] eGFRAA 50 mL/min/1.73m2 Low >60 [facility] Comment on above: Performed By: #### C MP #### [facility] [address] [place], [place] [id number] eGFRNAA 41 mL/min/1.73m2 Low >[address] [facility] Specialist Comment on above: Performed By: #### C MP #### [facility] [address] [place], [place] [id number] Globulin (S) [Mass/Vol] 2.6 g/dL Normal 1.9-3.[address] [facility] Specialist Comment on above: Performed By: #### C MP #### [facility] [address] [place], [place] [id number] Glucose [Mass/Vol] 127 mg/dL High 65-99 [facility] Specialist Comment on above: Result Comment: For FASTING Glucose --- ADA reference ranges: Normal 65-99 mg/dl Prediabetes 100-125 Diabetes >/= 126 Performed By: #### C MP #### [facility] [address] [place], [place] [id number] Potassium [Moles/Vol] 4.6 mmol/L Normal 3.5-5.5 [facility] Comment on above: Performed By: #### C MP #### [facility] [address] [place], [place] [id number] Protein [Mass/Vol] 6.9 g/dL Normal 6.1-8.1 [facility] Comment on above: Performed By: #### C MP #### [facility] [address] [place], [place] [id number] Sodium [Moles/Vol] 140 mmol/L Normal 135-146 [facility] Comment on above: Performed By: #### C MP #### [facility] [address] [place], [place] [id number] Urea nitrogen [Mass/Vol] 21 mg/dL Normal 7-[address] [facility] Specialist Comment on above: Performed By: #### C MP #### [facility] [address] [place], [place] [id number] Hemoglobin A1Con 07-03-2021 EAG 162.[address] [facility] Specialist Comment on above: Performed By: #### A 1C #### [facility] [address] [place], [place] [id number] HbA1c (Bld) [Mass fraction] 7.3 % High 4.0-6.0 [facility] Director Comment on above: Performed By: #### A 1C #### [facility] [address] [place], [place] [id number] Q - CULTURE,URINE,ROUTINEon 05-19-2021 CULTURE, URINE, ROUTINE SEE NOTE Normal [facility] Director Comment on above: Order Comment: [facility] performed at: [facility], [facility], [address] [facility], [address] [place] [address], [id number], Woodyard Operator: Rodney Arzola MD [facility] Collection Date/Time: [id number] [facility] Results Received Date/Time: [facility] Reported Date/Time: Result Comment: CULT URE, URINE, ROUTINE Micro Number: [id number] Test Status: Final Specimen Source: Urine, clean catch Specimen Quality: Adequate Result: Mixed genital chanelle isolated. These superficial bacteria are not indicative of a urinary tract infection. No further organism identification is warranted on this specimen. If clinically indicated, recollect clean-catch, mid-stream urine and transfer immediately to Urine Culture Transport Tube. Performed By: #### 6 [id number] #### [facility] [address] [place] [address] Vital Signs Date Time Vital Sign Value Performing Clinician Facility 12-12-2023 13:04040 Body height 165.1 cm Aliza Cherry MD Work Phone: [facility] 12-12-2023 13:04-0400 Body mass index (BMI) [Ratio] 36.94 kg/m2 Aliza Cherry MD Work Phone: [facility] 12-12-2023 13:04040 Body weight 100.7 kg Aliza Cherry MD Work Phone: [facility] 12-12-2023 13:04-0400 Heart rate 61 /min Aliza Cherry MD Work Phone: [facility] 12-12-2023 13:04-0400 Respiratory rate 16 /min Aliza Cherry MD Work Phone: [facility] 05-27-2023 11:40-0400 Body height 165.1 cm Barb Awan [employer] Work Phone: [facility] 05-27-2023 11:40-0400 Body mass index (BMI) [Ratio] 35.98 kg/m2 Barb Awan [employer] Work Phone: [facility] 05-27-2023 11:40-0400 Body weight 98.07 kg Barb Awan [employer] Work Phone: [facility] [employer] [facility] 05-27-2023 11:40-0400 Diastolic blood pressure 60 mm[Hg] Barb Awan [employer] Work Phone: [facility] 05-27-2023 11:40-0400 Heart rate 71 /min Barb Awan [employer] Work Phone: [facility] [employer] [facility] 05-27-2023 11:40-0400 Systolic blood pressure 130 mm[Hg] Barb Awan [employer] Work Phone: [facility] [employer] [facility] 02-21-2023 15:15-0500 Body height 165.1 cm Teodoro Kelly Other [employer] Other 02-21-2023 15:15-0500 Body mass index (BMI) [Ratio] 36.87 kg/m2 Teodoro Kelly Other [employer] Other 02-21-2023 15:15-0500 Body weight 100.52 kg Teodoro Kelly Other [employer] Other 02-21-2023 15:15-0500 Diastolic blood pressure 64 mm[Hg] Teodoro Kelly Other [employer] Other 02-21-2023 15:15-0500 SaO2% (BldA) [Mass fraction] 93 % Teodoro Kelly Other [employer] Other 02-21-2023 15:15-0500 Systolic blood pressure 140 mm[Hg] Teodoro Leticia Other [employer] Other 02-08-2023 11:45-0500 Body weight 99.79 kg Teodoro Leticia Other [employer] Other 02-08-2023 11:45-0500 Diastolic blood pressure 70 mm[Hg] Teodoro Leticia Other [employer] Other 02-08-2023 11:45-0500 SaO2% (BldA) [Mass fraction] 93 % Teodoro Leticia Other [employer] Other 02-08-2023 11:45-0500 Systolic blood pressure 130 mm[Hg] Teodoro Leticia Other [employer] Other 01-24-2023 15:00-0500 Diastolic blood pressure 72 mm[Hg] Teodoro Leticia Other [employer] Other 01-24-2023 15:00-0500 SaO2% (BldA) [Mass fraction] 95 % Teodoro Leticia Other [employer] Other 01-24-2023 15:00-0500 Systolic blood pressure 136 mm[Hg] Teodoro Leticia Other [employer] Other 12-30-2022 15:00-0400 Body weight 105.69 kg Teodoro Leticia Other [employer] Other 12-30-2022 15:00-0400 SaO2% (BldA) [Mass fraction] 92 % Teodoro Kelly Other [facility] [employer] Other Encounters Encounter Date Encounter Type Care Provider Facility Start: 01-09-2024 End: 01-09-2024 Office outpatient visit 25 minutes Bridget Sanchezkarena DO Work Phone: [facility] Comment on above: Primary osteoarthrit is of right hip (Primary Dx) Start: 01-09-2024 End: 01-09-2024 ambulatory JR., BRIDGET Maria De Jesus SANCHEZ Not Available Start: 01-09-2024 End: 01-09-2024 Bamboo flowsheet Bridget Maria De Jesus Sanchez DO Work Phone: [facility] Start: 01-09-2024 End: 01-09-2024 Bamboo flowsheet JrHoward Bridget Maria De Jesus Danielkarena DO Work Phone: [facility] Start: 01-05-2024 End: 01-08-2024 Refill Aliza Cherry MD Work Phone: [facility] Comment on above: 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 (CMS/HCC) (Primary Dx) Start: 01-01-2024 End: 01-02-2024 Refill Mahnaz Hubbard MD Work Phone: [facility] Comment on above: Acquired hypothyroid ism (CMS/HCC); Hypomagnesemia; Essential hypertension (CMS/HCC) Start: 12-12-2023 End: 12-12-2023 Bamboo flowsheet Aliza Cherry MD Work Phone: [facility] Start: 12-12-2023 End: 12-12-2023 Bamboo flowsheet Aliza Cherry MD Work Phone: [facility] Start: 12-12-2023 End: 12-12-2023 Office outpatient visit 25 minutes Aliza Cherry MD Work Phone: [facility] Comment on above: Type 2 diabetes stewart itus with hyperglycemia, with long-term current use of insulin ([facility]) (Primary Dx); Vitamin D deficiency; Insulin long-term use ([facility]); Hyperlipemia, mixed ([facility]); Primary hypertension ([facility]); Stage 3b chronic kidney disease (HCC) ([facility]); Class 2 severe obesity due to excess calories with serious comorbidity and body mass index (BMI) of 36.0 to 36.9 in adult ([facility]) Start: 12-12-2023 End: 12-12-2023 ambulatory ALIZA CHERRY Not Available Start: 10-19-2023 End: 10-19-2023 ambulatory LIN MASTERS Not Available Start: 09-12-2023 End: 09-12-2023 ambulatory ARMIN PARDO [facility] Start: 07-25-2023 End: 07-25-2023 ambulatory JOSE PEREIRA Not Available Start: 07-19-2023 End: 07-19-2023 ambulatory OLEG RICHARDS [facility] Start: 07-06-2023 End: 07-06-2023 ambulatory BRIDGET SALAZAR Not Available Start: 06-21-2023 End: 06-21-2023 ambulatory DANDRE WHALEY [facility] Start: 05-30-2023 End: 05-30-2023 ambulatory LIN MASTERS Not Available Start: 05-27-2023 End: 05-27-[address] [facility] Start: 05-27-2023 End: 05-27-2023 Postop follow up visit related to original px Barb Awan [employer]TER[employer]BOX SHOOK PATCHER Work Phone: [facility] Comment on above: Status post laparosc opic cholecystectomy (Primary Dx) Start: 05-15-2023 End: 05-15-2023 ambulatory RAFAT HOUSTON [facility] Start: 05-13-2023 End: 05-15-2023 ambulatory JOSE DALAL [facility] Start: 05-12-2023 End: 05-15-2023 Emergency department patient visit BINDU T [facility] Start: 05-12-2023 End: 05-15-2023 Emergency department patient visit BINDU Lind [facility] Start: 05-12-2023 End: 05-14-2023 ambulatory MAHNAZ RABAGOHMAN [facility] Start: 05-12-2023 End: 05-15-2023 Emergency department patient visit BINDU Lind [facility] Start: 04-29-2023 End: 04-29-2023 ambulatory LINSwapnil ANANDMASTERS Not Available Start: 04-21-2023 Bamboo flowsheet Lin A Masters PRE ASSEMBLY WIRER Work Phone: [facility] Start: 04-21-2023 Bamboo flowsheet Lin A Masters [employer] ASSEMBLY WIRER Work Phone: [facility] Start: 04-21-2023 End: 04-21-2023 ambulatory LIN A MASTERS Not Available Start: 04-12-2023 End: 04-12-2023 ambulatory ALIZA CHERRY [facility] Start: 03-31-2023 End: 03-31-2023 ambulatory Landy Romano Other [employer] Other Start: 03-31-2023 Office outpatient vi sit 15 minutes Landy Romano [facility] Start: 03-17-2023 (PROC) PROCEDURE Teodoro Uriarte [facility] Start: 03-17-2023 End: 03-17-2023 ambulatory Teodoro Kelly Other [employer] Other Start: 03-14-2023 End: 03-14-2023 ambulatory LIN ANANDTRICK Not Available Start: 02-21-2023 End: 02-21-2023 ambulatory Teodoro Kelly Other [employer] Other Start: 02-21-2023 Office outpatient vi sit 25 minutes Teodoro Kelly [facility] Start: 02-15-2023 (PROC) PROCEDURE Teodoro Bowser [facility] Start: 02-15-2023 End: 02-15-2023 ambulatory Teodoro Kelly Other [employer] Other Start: 02-08-2023 End: 02-08-2023 ambulatory Teodoro Kelly Other [employer] Other Start: 02-08-2023 Office outpatient vi sit 15 minutes Teodoro Leticia [facility] Start: 02-01-2023 (PROC) PROCEDURE Teodoro Bowser [facility] Start: 02-01-2023 End: 02-01-2023 ambulatory Teodoro Kelly Other [employer] Other Start: 01-24-2023 End: 01-24-2023 ambulatory Teodoro Kelly Other [employer] Other Start: 01-24-2023 Office outpatient vi sit 25 minutes Teodorobharat Kelly [facility] Start: 01-20-2023 End: 01-20-2023 ambulatory Teodoro Kelly Facility:[facility] Start: 12-30-2022 End: 12-30-2022 ambulatory Teodoro Kelly Other [employer] Other Start: 12-30-2022 Office outpatient ne w 45 minutes Teodorobharat Kelly [facility] Start: 08-04-2022 End: 08-04-[address] MAHNAZ HUBBARD Facility:[facility] Procedures Date Procedure Procedure Detail Performing Clinician Start: 12-12-2023 Gluc bld gluc mntr dev cleared fda spec home use Aliza Cherry MD Work Phone: Start: 07-19-2023 Follow-up visit Follow-up OLEG RICHARDS Start: 06-21-2023 Follow-up visit Follow-up DANDRE WHALEY History of cholecystectomy Status post laparoscopic cholecystectomy Barb Awan [employer] SHOOK PATCHER Work Phone: Plan of Treatment Date Care Activity Detail Author Start: 05-26-2024 Adult BMI Screening Adult BMI Screen ing [facility] Start: 05-26-2024 Tobacco Screening Tobacco Screening [facility] Start: 04-21-2024 Medicare Annual Wellness (AWV) Medicare Annual Wellness (AWV) [facility] Start: 04-21-2024 Urine screening for protein Diabetes: Urine Protein Screening [facility] Start: 04-19-2024 Glaucoma screening Diabetes: R etinopathy Screening [facility] Start: 04-16-2024 End: 04-16-2024 Patient encounter procedure 04/16/2024 1:20 PM EST Office Visit [facility] [address] [place] [address] Aliza Cherry MD [address] [place] [address] [facility] Start: 03-13-2024 Hemoglobin A1c measurement Diabetes: Hemoglobin A1C [facility] Start: 01-19-2024 End: 01-19-2024 Patient encounter procedure 01/19/2024 2:30 PM EST Office Visit [facility] [address] [place] [phone] Lin Masters NP [address] [place] [address] [facility] Start: 01-19-2024 Hemoglobin A1c measurement Diabetes: Hemoglobin A1C [facility] Start: 01-09-2024 End: 01-09-2024 Patient encounter procedure [facility] Comment on above: Arrived Start: 01-09-2024 End: 01-08-2025 RF Guidance for injection of Joint FL guided injection hip right Imaging Routine Primary osteoarthritis of right hip Expected: 01/09/2024 (Approximate), Expires: 01/08/2025 [facility] Work Phone: Comment on above: Expected: 01/09/2024 (Approximate), Expires: 01/08/2025 Start: 12-12-2023 End: 12-11-2024 25-hydroxyvitamin D3 [Mass/volume] in Serum or Plasma Vitamin D 25 hydroxy Total Lab Routine Vitamin D deficiency Expected: 12/12/2023 (Approximate), Expires: 12/11/2024 [facility] Work Phone: Comment on above: Expected: 12/12/2023 (Approximate), Expires: 12/11/2024 Start: 12-12-2023 End: 12-11-2024 Lipid 1996 panel - Serum or Plasma Lipid panel Lab Routine Type 2 diabetes mellitus with hyperglycemia, with long-term current use of insulin ([facility]) Expected: 12/12/2023 (Approximate), Expires: 12/11/2024 [facility] Comment on above: Expected: 12/12/2023 (Approximate), Expires: 12/11/2024 Start: 12-12-2023 End: 12-11-2024 Microalbumin/Creatini ne panel in random Urine Microalbumin / creatinine urine ratio Lab Routine Type 2 diabetes mellitus with hyperglycemia, with long-term current use of insulin ([facility]) Expected: 12/12/2023 (Approximate), Expires: 12/11/2024 [facility] Comment on above: Expected: 12/12/2023 (Approximate), Expires: 12/11/2024 Start: 12-12-2023 End: 12-11-2024 Renal function panel Renal function panel Lab Routine Type 2 diabetes mellitus with hyperglycemia, with long-term current use of insulin ([facility]) Expected: 12/12/2023 (Approximate), Expires: 12/11/2024 [facility] Comment on above: Expected: 12/12/2023 (Approximate), Expires: 12/11/2024 Start: 12-12-2023 End: 12-12-2023 Patient encounter procedure 12/12/2023 1:00 PM EDT Office Visit [facility] [address] [place] [address] Aliza Cherry MD [address] [place] [address] Type 2 diabetes mellitus with hyperglycemia, with long-term current use of insulin ([facility]) [facility] Comment on above: Type 2 diabetes stewart itus with hyperglycemia, with long-term current use of insulin ([facility]) Start: 11-06-2023 Influenza vaccination Influenza Vacc ine (#1) [facility] Start: 07-19-2023 End: 07-19-2023 Patient encounter procedure 07/19/2023 1:15 PM EDT Office Visit [facility] [address] [place] [address] [place] [address] [place] [phone] Oleg Richards MD [address] [place] [address] [facility] Start: 06-21-2023 End: 06-21-2023 Patient encounter procedure 06/21/2023 11:30 AM EDT Office Visit [facility] [address] [facility] [address] [place] [phone] Dandre Whaley MD [address] [place] [phone] [facility] Start: 06-15-2023 End: 06-15-2023 Patient encounter procedure 06/15/2023 1:30 PM EDT Office Visit [facility] [address] [place] [phone] Jr. Bridget Sanchez, DO [address] [facility] [address] [place] [address] [facility] Start: 06-13-2023 Hemoglobin A1c measurement Diabetes: Hemoglobin A1C [facility] Start: 04-21-2023 End: 04-21-2023 Patient encounter procedure 04/21/2023 2:00 PM EST Office Visit [facility] [address] [place] [phone] Lin Masters NP [address] [place] [address] Arrived [facility] Comment on above: Arrived Start: 04-20-2023 Medicare Annual Wellness (AWV) Medicare Annual Wellness (AWV) [facility] Start: 2007 Fall Risk Screening Fall Risk Screen ing [facility] Start: 1961 DTaP,Tdap and Td Vaccines (1 - Tdap) DTaP,Tdap and Td Vaccines (1 - Tdap) [facility] Start: 1960 Adult BMI Follow Up Plan Adult BMI Follow Up Plan [facility] Start: 1954 Depression Screening Depression Scre ening [facility] Start: 1942 Medicare Annual Wellness Visit Medicare Annual Wellness Visit [facility] Immunizations Immunization Date Immunization Notes Care Provider Fa cility 12-15-2023 influenza virus vacc ine, unspecified formulation Jr. Sanchez DO Work Phone: [facility] 12-26-2022 RSV, recombinant, protein subunit RSVpreF, adjuvant reconstitu, 120mcg/0.5mL, PF (Arexvy) Lin Masters PRE ASSEMBLY WIRER Work Phone: [facility] 12-08-2022 Influenza, High-dose Seasonal, Quadrivalent, Preservative Free Lin Masters PRE ASSEMBLY WIRER Work Phone: [facility] 12-08-2022 influenza virus vacc ine, unspecified formulation Aliza Cherry MD Work Phone: [facility] 12-15-2021 influenza, high dose seasonal, preservative-free Lin Masters PRE ASSEMBLY WIRER Work Phone: [facility] 12-15-2021 Influenza, High-dose Seasonal, Quadrivalent, Preservative Free Lin Christinazpatrick PRE ASSEMBLY WIRER Work Phone: [facility] 12-15-2021 Moderna Bivalent Clarke ster Vaccination Lin Christinazpatrick PRE ASSEMBLY WIRER Work Phone: [facility] 12-31-2020 influenza, injectabl e, quadrivalent, preservative free Lin Masters PRE ASSEMBLY WIRER Work Phone: [facility] 12-24-2020 Influenza, Seasonal, Quadrivalent, Adjuvanted Lin Masters PRE ASSEMBLY WIRER Work Phone: [facility] 05-06-2020 Pfizer Purple Cap SARS-CoV-2 Vaccination Lin Masters PRE ASSEMBLY WIRER Work Phone: [facility] 04-14-2020 Pfizer Purple Cap SARS-CoV-2 Vaccination Lin Masters PRE ASSEMBLY WIRER Work Phone: [facility] 02-21-2020 zoster vaccine recombinant Lin Masters PRE ASSEMBLY WIRER Work Phone: [facility] 02-20-2020 zoster vaccine recombinant Lin Masters PRE ASSEMBLY WIRER Work Phone: [facility] 12-17-2019 Influenza, High-dose Seasonal, Quadrivalent, Preservative Free Lin Masters PRE ASSEMBLY WIRER Work Phone: [facility] 12-17-2019 zoster vaccine recombinant Lin Masters PRE ASSEMBLY WIRER Work Phone: [facility] 12-16-2019 zoster vaccine recombinant Lin Masters PRE ASSEMBLY WIRER Work Phone: [facility] 11-29-2018 influenza, high dose seasonal, preservative-free Lin Masters PRE ASSEMBLY WIRER Work Phone: [facility] 11-28-2018 Influenza, High-dose Seasonal, Quadrivalent, Preservative Free Lin Masters PRE ASSEMBLY WIRER Work Phone: [facility] 12-13-2017 influenza, seasonal, injectable, preservative free Lin Masters PRE ASSEMBLY WIRER Work Phone: [facility] 12-16-2016 influenza virus vacc ine, unspecified formulation Lin Masters PRE ASSEMBLY WIRER Work Phone: [facility] 12-16-2016 influenza, seasonal, injectable, preservative free Lin Masters PRE ASSEMBLY WIRER Work Phone: [facility] 06-26-2015 pneumococcal conjuga te vaccine, 13 valent Lin Masters PRE ASSEMBLY WIRER Work Phone: [facility] 12-16-2014 seasonal influenza, intradermal, preservative free Lin Alstonk PRE ASSEMBLY WIRER Work Phone: [facility] 12-13-2012 influenza, seasonal, injectable, preservative free Lin Alstonk PRE ASSEMBLY WIRER Work Phone: [facility] 12-18-2010 pneumococcal polysaccharide vaccine, 23 valent Lin Fountainpatrick PRE ASSEMBLY WIRER Work Phone: [facility] Healthcare Payers Date Payer Category Payer Medicaid [employer] MEDICARE A DVANTAGE [id number] 2023 Medicare [id number] 2023 Medicare [id number] [id number] 2022 Self-pay 1959 Medicare [id number] 1959 Unknown [id number] 1942 Unknown [id number] 2.16.840.1.412001.3.579.2.593 1942 Unknown [id number] 2.16.840.1.874801.3.579.2.1286 1942 Unknown [id number] 2.16.840.1.756204.3.579.2.1286 1942 Unknown [id number] 2.16.840.1.547324.3.579.2.1286 1942 Unknown [id number] 2.16.840.1.984167.3.579.2.1286 1942 Unknown [id number] 2.16.840.1.202723.3.579.2.1286 1942 Unknown [id number] 2.16.840.1.289900.3.579.2.128 1942 Unknown [id number] 2.16.840.1.796401.3.579.2.1286 1942 Unknown [id number] 2.16.840.1.912474.3.579.2.128 1942 Unknown [id number] 2.16.840.1.450400.3.579.2.128 1942 Unknown [id number] 2.16.840.1.815752.3.579.2.128 1942 Unknown [id number] 2.16.840.1.500244.3.579.2.128 1942 Unknown [id number] 2.16.840.1.405096.3.579.2.128 1942 Unknown [id number] 2.16.840.1.165605.3.579.2.128 1942 Unknown [id number] 2.16.840.1.986872.3.579.2.1259 1942 Unknown [id number] 2.16.840.1.530506.3.579.2.1259 1942 Unknown [id number] 2.16.840.1.074277.3.579.2.1258 1942 Unknown [id number] 2.16.840.1.418624.3.579.2.1259 1942 Unknown [id number] 2.16.840.1.848000.3.579.2.1258 1942 Unknown [id number] 2.16.840.1.990630.3.579.2.1259 1942 Unknown [id number] 2.16.840.1.196301.3.579.2.1259 1942 Unknown [id number] 2.16.840.1.513412.3.579.2.1259 1942 Unknown [id number] 2.16.840.1.010325.3.579.2.1259 1942 Unknown [id number] 2.16.840.1.370657.3.579.2.1259 Medicare [id number] 2.16.840.1.936364.19 Unknown [id number] 2.16.840.1.546209.3.579.2.531 Social History Date Type Detail Facility Start: 03-14-2023 End: 04-21-2023 Sex Assigned At [facility] Start: 09-07-2022 Tobacco smoking stat [facility] Never smoked tobacco [facility] Start: 09-07-2022 End: 05-27-2023 Tobacco use and exposure Smokeless tobacco non-user [facility] Start: 03-22-2023 End: 01-09-2024 Alcohol intake Lifetime non-drinker (finding) [facility] Start: 03-14-2023 End: 04-21-2023 History of Social function [facility] Start: 10-22-2022 Alcohol Comment Caffeine intak e: 1-2 cups per day coffee [facility] Start: 1940 Sex Assigned At Not on file [facility] Start: 05-19-2022 Gender identity Identifies as female gender (finding) [facility] Start: 05-27-2023 Tobacco smoking stat [facility] Ex-smoker [facility] End: 03-07-2003 History of tobacco use Current smoker [facility] End: 03-07-2003 History of tobacco use Cigarette Smoker [facility] Start: 05-27-2023 Alcohol intake Ex-drinker (finding) [facility] Has the [employer], or water Fresh ! threatened to shut off services in your home in past 12Mo No [facility] Are you now , , , , never or living with a partner? [facility] How often to you hav e a drink containing alcohol? Monthly or less [facility] How many standard drinks containing alcohol do you have on a typical day? 1 or 2 [facility] How often do you hav e 6 or more drinks on 1 occasion? Less than monthly [facility] How hard is it for y ou to pay for the very basics like food, housing, medical care, and heating Not hard at all [facility] Do you feel stress - tense, restless, nervous, or anxious, or unable to sleep at night because your mind is troubled all the time - these days [OSQ] Not at all [facility] Start: 06-21-2022 Tobacco Comment quit 20 years ago [facility] [employer] [facility] Procedure Code Equipment Code Equipment Origin al Text Equipment Identifier Dates [id number] Start: 04-26-2016 End: 01-08-2024 USE TWICE DAILY DIRECTED [id number] Start: 01-08-2024 Goals Date Patient Goal Desired Activity /State Personal health goal Comment on above: Formatting of this n ote might be different from the original. Evaluation of progress towards goal: safe transition to home Clinical Notes 04-17-2020 to 01-09-2024 Jr. Bridget Sanchez, - 01/09/2024 2:45 PM Tigist Cherry MD - 12/12/2023 1:00 PM Cash Awan APRN-BOX SHOOK PATCHER - 05/27/2023 11:30 AM EDT Note Date & Type Note Facility 01-09-2024 History of Present illness Narrative Images from the original note were not included. HISTORY OF PRESENT ILLNESS: EST PT Ariane Will is an 83 y.o. @ female. EST PT RECHECK LBP/RT HIP-S/P IA INJ TBH 07/12/24; GREAT RELIEF UNTIL RECENTLY- PT WOULD LIKE TO GET ANOTHER IA INJ XRAY RT HIP CHANGE 07/06/23 XRAY RT HIP CHANGE 12/08/22 XRAY L-SPINE 10/06/22 CHANGE XRAY RT HIP 06/21/22 EXA MRI LUMBAR SPINE 01/20/23 [facility] 06/2022, 09/08/22 , 10/06/22 HX PT DIVYA BECK 01/26 HX CORTISONE INJ 07/05/22 RT HIP IA INJ RT HIP TBH 08/04/22, 07/13/23 DR KELLY; NERVE BURNING 03/2023; GOOD RELIEF NO EMG PAIN LATERAL AND GROIN REGION- INCREASE SYMPTOMS WITH INCREASE ACTIVITY- +TYLENOL- OCCASIONALLY WAKES HS- DENIES N/T PT IS DIABETIC HX RT HAND 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 RELEASE PER DR SANCHEZ ALLERGIES: Allergies Allergen Reactions Hydrocodone-Acetaminophen Other Reaction(s): vomiting Levofloxacin Other Reaction(s): hives Lisinopril Cough Morphine Other Reaction(s): vomiting, hallucinations Moxifloxacin Other Reaction(s): hives Nitrofurantoin Other Reaction(s): vomiting Oxycodone-Acetaminophen Other Reaction(s): vomiting Ciprofloxacin Rash Guaifenesin-Codeine Rash Penicillin G Rash Sulfamethoxazole-Trimethoprim Rash HOME MEDICATIONS: Current Outpatient Medications Medication Instructions acetaminophen (TYLENOL) 500 mg, Oral, Every 6 hours PRN amLODIPine (NORVASC) 10 mg, Oral, Daily atorvastatin (Lipitor) 80 MG tablet TAKE 1 TABLET(80 MG) BY MOUTH AT BEDTIME carvedilol (Coreg) 25 MG tablet TAKE 1 TABLET BY MOUTH EVERY MORNING AND 1 TABLET EVERY NIGHT AT BEDTIME cholecalciferol (D3-5) 5,000 Units, Oral, Daily RT clobetasol (Temovate) 0.05 % ointment Topical, 2 times daily, Apply in thin layers. Could thin and discolor skin. Do not use on face or private areas. Continuous Blood Gluc Engine Setter (FreeStyle Deonte 14 Day Topanga) device FreeStyle Deonte 14 Day [place]anga cyanocobalamin (VITAMIN B-12) 1,000 mcg, Oral, Daily fluticasone (Flonase) 50 MCG/ACT nasal spray 1 spray, Does not apply, Daily RT insulin aspart protamine-insulin aspart (NovoLOG MIX 70/30 FLEXPEN) (70-30) 100 UNIT/ML injection Every 12 hours, 25 units in the AM and 20 units in the PM insulin pen needle (BD Pen Needle Gloria 2nd Gen) 32G x 4 mm misc USE TWICE DAILY DIRECTED Januvia 50 MG tablet levothyroxine (Synthroid, Levoxyl) 100 MCG tablet TAKE 1 TABLET BY MOUTH EVERY DAY IN THE MORNING ON AN EMPTY STOMACH losartan (COZAAR) 100 mg, Oral, Daily RT magnesium oxide (Mag-Ox) 400 (240 Mg) MG tablet TAKE 1 TABLET BY MOUTH TWICE DAILY nitroglycerin (Nitrostat) 0.4 MG SL tablet SEE NOTES tetrahydrozoline-zinc (Visine-AC) 0.05-0.25 % ophthalmic solution 1 drop, Ophthalmic, As needed PHYSICAL EXAM: Hip Musculoskeletal Exam Gait Antalgic: right Limp: right Trendelenburg: right Abductor lurch: right Circumduction: right Inspection Leg length disparity: no discrepancy Right Erythema: none Ecchymosis: none Edema: none Deformity: none Previous incision: no previous incision Palpation Right Right hip palpation is normal. Increased warmth: none Tenderness: present ((R) gluteal pain) Greater trochanteric region pain: moderate Pubic rami pain: none Lower lumbar region pain: none Range of Motion Right Right hip range of motion is within functional limits. Active ROM: abnormal and pain. Passive ROM: abnormal and pain. Active extension: 10. Passive extension: 5. Active flexion: 40. Passive flexion: 40. Active internal rotation: 5. Passive internal rotation: 10. Active external rotation: 10. Passive external rotation: 15. Active adduction: 10. Passive adduction: 15. Active abduction: 10. Passive abduction: 15. Strength Right Right hip strength is normal. Extension: 5/5. Flexion: 5/5. Internal rotation: 5/5. External rotation: 5/5. Adduction: 5/5. Abduction: 5/5. Neurovascular Right Right hip neurovascular exam is normal. Sensation: sural, saphenous, tibial, superficial peroneal and deep peroneal Dorsalis pedis: 2+ Pulses - PT: normal Posterior tibial: 2+ Special Tests Right Log roll test: positive Impingement test: positive Trendelenburg test: positive Internal rotation: positive External rotation: positive Vitals: There is no height or weight on file to calculate BMI. Tobacco Use: Low Risk (01/09/2024) Patient History Smoking Tobacco Use: Never Smokeless Tobacco Use: Never Passive Exposure: Not on file Alcohol Use: Not At Risk (05/12/2023) Received from [facility], [facility] AUDIT-C Frequency of Alcohol Consumption: Monthly or less Average Number of Drinks: 1 or 2 Frequency of Binge Drinking: Less than monthly IMAGING: Procedures Orders Placed This Encounter Procedures FL guided injection hip right Standing Status: Future Standing Expiration Date: 01/08/2025 Order Specific Question: Reason for exam: Answer: (R) hip DJD ASSESSMENT: ICD-10-CM 1. Primary osteoarthritis of right hip M16.11 FL guided injection hip right PLAN: We have answered all the patients questions and explained the patients condition, decision making and plan including the risks and benefits associated with said plan in layman''s terms in a language the patient could understand easily. If patient''s symptoms significantly worsen and they cannot get a hold of us or their family physician, we have recommended that the patient proceed to the nearest emergency department (room). Dr. Sanchez obtained history and examined the patient, I am acting as scribe for Dr. Sanchez/sona, PLAN: We have reviewed prior (R) hip xrays. Patient notes good relief of her right hip with prior IA injection with symptoms returning. She is requesting a repeat IA injection. We are recommending proceeding with IA injection at [facility] as she responded so favorably in the past. We have discussed her HEP and restrictions and will see her back on a prn basis. Bridget Sanchez D.O. documented in this encounter [facility] 12-12-2023 History of Present illness Narrative Ariane Will is a 83 y.o. female Aliza Cherry MD presents with chief complaint of Diabetes and Follow-up HPI: Interim History: 12/2023 Follow-up visit on 12/12/2023 for type 2 diabetes. A1c 7.6. bg 136, She is on now Novolin N 70/30 pen, 25 units bk and 20 units dinner, Januvia 50 mg daily, CGM interpretation avg 7 days 120. Interim History: 08/2023 Follow-up visit on 08/15/2023 for type 2 diabetes. A1c 7.8. bg 218 She is on now Novolin N 70/30 pen, 25 units bk and 20 units dinner, Januvia 50 mg daily, CGM interpretation 2-81-17 avg 145. Interim History: 04/2023 Follow-up visit on 04/18/2023 for type 2 diabetes. A1c 8 with PCP on 03/2023. bg 202, She is on now Novolin N 70/30 pen, 25 units bk and 20 units dinner, Januvia 50 mg daily, CGM interpretation 04/18/2023, avg 138. lab on 04/2023 C peptide 5.2, TC 130, TG 227, HDL 47, LDL 38, VIT D 31, AL/CR 26, CR 1.26, GFR 42. Interim History: 12/2022 Follow-up visit on 12/23/2022 for type 2 diabetes. A1c in the office 9 . bg 210, She is on now Novolin N 70/30 pen, 25 units bk and 20 units dinner, januvia 50 mg daily, CGM interpretation 85-14, avg 135 Interim History: 08/2022 Follow-up visit on 08/26/2022 for type 2 diabetes. A1c in the office 7.8 . bg 177, She is on now Novolin N 70/30 pen, 25 units bk and 20 units dinner, off januvia 50 mg daily due to UTI ?, CGM interpretation 479-1, avg 136 Interim History: 04/2022 Follow-up visit on 04/29/2022 for type 2 diabetes. A1c in the office 7.4 . bg 140, She is on now Novolin N 70/30 pen, 22 units bk and 20 units dinner, januvia 50 mg daily, CGM interpretation 82-17 avg 143 Interim History: 12/2021 Follow-up visit on 12/17/2021 for type 2 diabetes. A1c in the office 7.8 . bg 275, She is on now Novolin N 70/30 pen, 22 units bk and 20 units dinner, januvia 50 mg daily, CGM interpretation 0-74-22 avg 157 Interim History: 08/2021 Follow-up visit on 08/25/2021 for type 2 diabetes. A1c in the office 7.3 . bg 162, She is on now Novolin N 70/30 pen, 20 units bk and 20 units dinner, januvia 50 mg daily, CGM interpretation 81-17 [id number] Interim History: 04/2021 Follow-up visit on 04/13/2021 for type 2 diabetes. A1c in the office 7 . bg 133, She is on now Novolin N 70/30 pen, 20 units bk and 20 units dinner, januvia 50 mg daily, CGM interpretation 4-90-6 avg 112 Interim History: 12/2020 Follow-up visit on 12/16/2020 for type 2 diabetes. A1c in the office 6.9 . bg 176, She is on now Novolin N 70/30 pen, 20 units bk and 20 units dinner, januvia 50 mg daily, CGM interpretation today Interim History: 09/2020 Follow-up visit on 09/09/2020 for type 2 diabetes. A1c in the office 8 . bg 205, She is on now Novolin N 70/30 pen, 20 units bk and 20 units dinner, januvia 50 mg daily, CGM interpretation today 0-78-22, avg 159. Interim History: 05/2020 Follow-up visit on 05/20/2020 for type 2 diabetes. A1c in the office 7.3. bg 164, She is on now Novolin N 70/30 pen, 20 units bk and 20 units dinner, januvia 50 mg daily, CGM interpretation today 1-93-6, avg 133. lab in 05/2020 AL/CR 26, TC 137, TG 232, HDL 38, LDL 54, CR 1.18, GFR 44, VIT D 51 Interim History: 02/2020 Follow-up visit on 02/12/2020 for type 2 diabetes. A1c in the office 7.2. bg 169 She is on now Novolin N 70/30 pen, 28 units bk and 24 units dinner, januvia 50 mg daily, CGM interpretation today 1-94-5, avg 122 Interim History: 11/2019 Follow-up visit on 11/13/2019 for type 2 diabetes. A1c in the office 10.2. She is on now Novolin N 70/30 pen, 20 units twice a day. Labs done by her primary doctor in October 2019. BUN 18, creatinine 1.1, and GFR 47. Interim history: 08/2019 Follow-up visit 08/08/19 for CGM interpretation, average 134, 8% low range, 77% in good range, 15% high range and her meter: lowest 125, highest 229, average 1.2 per day, average 168. Currently she is on 70/30, 20 units twice a day. Labs done. C-peptide 6.5, total cholesterol 132, triglycerides 250, HDL 41, LDL 41. BUN 22, creatinine 1.2, GFR 44, vitamin D 60. She is taking once a day tablet. I told her she can skip two days a week and albumin/creatinine 22. HPI: 07/2019 New patient to the office on 07/11/19. Sent from [facility]. I am redictating this since not done yesterday. She came for uncontrolled diabetes. A1c in the office is 8.4, blood sugar is 256. BUN 21, creatinine 1.15. She was admitted to the hospital for pancreatitis. They kept her off glimepiride which she is taking 4 mg in the morning, 2 mg at dinner, now she is off also metformin and blood sugars are in the high range. She has diabetes for almost 12 years. No heart disease or stroke. She has numbness and tingling in her feet. I discussed with her multiple options and we will start her back on mixed insulin, simple, easy regime, 20 units twice a day. I gave her a dose in the office. Will send a prescription with her CGM and see her in two weeks for interpretation. SUBJECTIVE: MEDICATIONS: Current Outpatient Medications Medication Instructions acetaminophen (TYLENOL) 500 mg, Oral, Every 6 hours PRN amLODIPine (NORVASC) 10 mg, Oral, Daily atorvastatin (Lipitor) 80 MG tablet TAKE 1 TABLET(80 MG) BY MOUTH AT BEDTIME BD Pen Needle Gloria 2nd Gen 32G X 4 MM misc USE TWICE DAILY DIRECTED carvedilol (Coreg) 25 MG tablet TAKE 1 TABLET BY MOUTH EVERY MORNING AND 1 TABLET EVERY NIGHT AT BEDTIME cholecalciferol (D3-5) 5,000 Units, Oral, Daily RT clobetasol (Temovate) 0.05 % ointment Topical, 2 times daily, Apply in thin layers. Could thin and discolor skin. Do not use on face or private areas. Continuous Blood Gluc Engine Setter (FreeStyle Deonte 14 Day [place]) device FreeStyle Deonte 14 Day [place] cyanocobalamin (VITAMIN B-12) 1,000 mcg, Oral, Daily fluticasone (Flonase) 50 MCG/ACT nasal spray 1 spray, Does not apply, Daily RT insulin aspart protamine-insulin aspart (NovoLOG MIX 70/30 FLEXPEN) (70-30) 100 UNIT/ML injection Every 12 hours, 25 units in the AM and 20 units in the PM Januvia 50 MG tablet levothyroxine (Synthroid, Levoxyl) 100 MCG tablet TAKE 1 TABLET BY MOUTH EVERY DAY IN THE MORNING ON AN EMPTY STOMACH losartan (COZAAR) 100 mg, Oral, Daily RT magnesium oxide (Mag-Ox) 400 (240 Mg) MG tablet TAKE 1 TABLET BY MOUTH TWICE DAILY nitroglycerin (Nitrostat) 0.4 MG SL tablet SEE NOTES tetrahydrozoline-zinc (Visine-AC) 0.05-0.25 % ophthalmic solution 1 drop, Ophthalmic, As needed ALLERGIES: Allergies Allergen Reactions Hydrocodone-Acetaminophen Other Reaction(s): vomiting Levofloxacin Other Reaction(s): hives Lisinopril Cough Morphine Other Reaction(s): vomiting, hallucinations Moxifloxacin Other Reaction(s): hives Nitrofurantoin Other Reaction(s): vomiting Oxycodone-Acetaminophen Other Reaction(s): vomiting Ciprofloxacin Rash Guaifenesin-Codeine Rash Penicillin G Rash Sulfamethoxazole-Trimethoprim Rash Past Medical History: Diagnosis Date Abdominal pain Benign essential hypertension (CMS/HCC) Bilateral plantar fasciitis Breast cancer (CMS/HCC) Breast cancer (CMS/HCC) Chest pain 2019 hx of hospitalization Chronic kidney disease, stage III (moderate) (HCC) (CMS/HCC) Diabetes mellitus with nephropathy (CMS/HCC) Finger pain, right GERD (gastroesophageal reflux disease) History of bilateral knee replacement History of heart attack (CMS/HCC) HLD (hyperlipidemia) (CMS/HCC) Hx of total knee arthroplasty HX: breast cancer Hyperlipidemia (CMS/HCC) Hypertensive emergency (CMS/HCC) 04/2020 Hypothyroidism (CMS/HCC) 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 Kelly Lumbar herniated disc Osteoarthritis right knee Ovarian cyst Pain in both knees Pancreatitis Pre-ulcerative calluses Left 1st MTP Joint x3 S/P trigger finger release Sinusitis Trigger middle finger of right hand Type 2 diabetes mellitus without complication (CMS/HCC) Vitamin D deficiency, unspecified Past Surgical History: Procedure Laterality Date BREAST MASS EXCISION Left 06/15/2016 CATARACT EXTRACTION 12/2011 CHOLECYSTECTOMY 05/13/2023 DR SANTIAGO COLONOSCOPY 01/2012 CT ANGIOGRAM HEART CORONARY 02/09/2019 CT ANGIOGRAM HEART CORONARY 02/09/2019 DIABETIC FOOT EXAM 03/2014 FL GUIDED INJECTION HIP RIGHT Right 07/13/2023 FL GUIDED INJECTION HIP RIGHT HM DIABETES EYE EXAM 12/2013 KNEE ARTHROPLASTY Left 02/25/2015 Dr. Tesfaye KNEE ARTHROSCOPY W/ ACL RECONSTRUCTION 2006 LAPAROTOMY OVARIAN CYSTECTOMY 10/08/2022 MASTECTOMY 2010 PAP SMEAR 2007 TOTAL KNEE ARTHROPLASTY Right 06/2013 Dr. Tesfaye TRIGGER FINGER RELEASE 01/2018 Dr. Sanchez REVIEW OF SYMPTOMS: 14 POINT OF SYSTEM REVIEWED AND NEGATIVE OBJECTIVE: Constitutional: Afebrile @ home; no weakness or night sweats SKIN: No change in skin color; no itching, rash or lesions; no hair loss; HEENT: No HAs or injury; no dizziness; No difficulty with vision; no eye pain, discharge or lesions; no hearing loss or difficulty; no nasal discharge, NECK: No pain, limitation of motion, lumps or swollen glands RESP: No cough, wheezing or difficulty breathing. No CP with breathing; CARDIO: No CP , SOB or fatigue, No edema, palpitations or dyspnea with exertion GI: No N/V/D or abd. pain; good appetite with no recent change. No heart burn, liver or gallbladder disease; no rectal bleeding or pain : No urinary pain , frequency or odor. MUSCULOSKELETAL: No muscle pain or cramps; no extremity weakness.No joint pain, stiffness, swelling or limitation of movement NEUROLOGY: No H/O seizures, stroke or fainting. No weakness, tremors. Hematology: No bleeding problems or excessive bruising ENDOCRINE: No increase in hunger, thirst or urination; admits compliance to medical management plan Feet: numbness tingling , ulcers or skin break Lab Results Component Value Date HGBA1C 7.6 12/12/2023 HGBA1C 8.0 10/19/2023 HGBA1C 8.0 03/14/2023 Lab Results Component Value Date GLU 136 12/12/2023 GLU 149 (H) 05/14/2023 GLU 119 (H) 05/13/2023 Visit Vitals Pulse 61 Resp 16 Ht 5' 5 Wt 222 lb BMI 36.94 kg/m Smoking Status Never BSA 2.15 m ASSESSMENT AND PLAN: Assessment/Plan Diagnoses and all orders for this visit: Type 2 diabetes mellitus with hyperglycemia, with long-term current use of insulin (CMS/HCC) - POCT glucose manually resulted - POCT glycosylated hemoglobin (Hb A1C) docked device We will continue insulin 70/30 25 units in the morning, 20 at dinner, continue Januvia 50 mg once a day according to her kidney. Vitamin D deficiency Insulin long-term use (CMS/HCC) Hyperlipemia, mixed (CMS/HCC) Primary hypertension (CMS/HCC) Stage 3b chronic kidney disease (HCC) (CMS/HCC) Class 2 severe obesity due to excess calories with serious comorbidity and body mass index (BMI) of 36.0 to 36.9 in adult (CMS/HCC) Diet and exercise reviewed with the patient Follow up in about 4 months (around 04/13/2024). documented in this encounter [facility] 05-27-2023 History of Present illness Narrative Subjective Ariane Will is a 83 y.o. female status post robotic assisted laparoscopic cholecystectomy on 05/13/2023. She is doing well and has no concerns. Her abdominal pains have resolved. She is tolerating oral intake and having bowel function. She denies any nausea or vomiting. She denies any fevers or chills. Objective Vitals: 05/27/23 1140 BP: 130/60 Pulse: 71 Physical Exam Abdominal: General: There is no distension. Palpations: Abdomen is soft. Tenderness: There is no abdominal tenderness. There is no guarding. Skin: General: Skin is warm and dry. Findings: No bruising or erythema. Comments: Lap sites clean, dry and intact. No signs of infection. Assessment Ariane Will is a 83 y.o.female postop laparoscopic cholecystectomy. Plan Final pathology discussed and given to patient in office today. No strenuous activity for the next 4 weeks. Follow-up as needed. Status post laparoscopic cholecystectomy [Z90.49] BARB AWAN, [employer] [facility] [place] This note was created with the assistance of a speech recognition program. While intending to generate a timely document that accurately reflects the content of the visit, no guarantee can be provided that every grammatical or spelling mistake has been or will be identified or corrected. Thank you for your understanding. DANE Sawant 05/27/23 1224 documented in this encounter [facility] 03-31-2023 Evaluation note Encounter Date Diagnosis Assessment Notes Mar, Lumbosacral spondylosis (ICD-10 - M47.817) 82 year old female here for follow up status post lumbar facet medial branch radiofrequency ablation bilaterally at L2, L3, L4 as well as the L5 dorsal ramus for denervation of L3-4, L5-S1 facet joints under fluoroscopic guidance. Patient reports 80% pain relief as well as improved walking, standing and daily functions following procedure. She voices minimal complaints of residual low back pain today. She denies any procedure related complications. Overall, she appears to be doing well. I recommend she increase her activities as tolerated. She is counseled against any excessive bending or twisting. She is advised to call the office if her pain returns. Mar, Chronic pain (ICD-10 - G89.29) Follow up after procedure Mar, Sacroiliitis (ICD-10 - M46.1) In the future if the pain persists, we can consider proceeding with a sacroiliac joint injection under fluoroscopic guidance. Mar, Other This documentation is being amended on 04/06/23 due to an internal data corruption event that occurred on 03/31/23. This data corruption event was NOT the result of any breach, fraud, or malicious third part actors and no personal patient information was compromised. [employer] Other 12-18-2023 Evaluation note* Encounter Date Diagnosis Assessment Notes Treatment Notes Treatment Clinical Notes Feb, Lumbosacral spondylosis (ICD-10 - M47.817) 82 year old female here for follow-up status post lumbar facet medial branch nerve block bilaterally at the L2, L3 and L4 levels as well as the L5 dorsal ramus under fluoroscopic guidance. Patient reports 70-80% pain relief and increased function in standing, walking and daily activities for greater than 8 hours following the procedure. She continues to complain of low back pain today as expected. Anatomy of spine as well as different treatment options were discussed in detail with patient in regards to patients condition. Patient is a candidate for a bilateral lumbar facet medial branch radiofrequency ablation under fluoroscopic guidance. Risks and benefits of procedure explained to patient; patient verbalizes understanding. Feb, Chronic pain (ICD-10 - G89.29) Follow up after procedure Feb, Sacroiliitis (ICD-10 - M46.1) In the future if the pain persists, we can consider proceeding with a sacroiliac joint injection under fluoroscopic guidance. [employer] Other 12-05-2023 Evaluation note* Encounter Date Diagnosis Assessment Notes Treatment Notes Treatment Clinical Notes Feb, Lumbosacral spondylosis (ICD-10 - M47.817) 82 year old female here for follow up status post lumbar facet medial branch nerve block bilaterally at the L2, L3 and L4 levels as well as the L5 dorsal ramus under fluoroscopic guidance. Patient reports 70-80% pain relief as well as improved walking, standing and daily functions for 6 hours following the procedure. She voices continued complaints of low back pain today as expected. Anatomy of spine discussed in detail with patient in regards to patients condition. Patient is a candidate for a confirmatory bilateral lumbar facet medial branch nerve block under fluoroscopic guidance. Risks and benefits of procedure explained to patient; patient verbalizes understanding. Feb, Chronic pain (ICD-10 - G89.29) Follow up after procedure Feb, Sacroiliitis (ICD-10 - M46.1) In the future if the pain persists, we can consider proceeding with a sacroiliac joint injection under fluoroscopic guidance. [employer] Other 11-20-2023 Evaluation note* Encounter Date Diagnosis Assessment Notes Treatment Notes Treatment Clinical Notes Jan, Lumbar radiculopathy (ICD-10 - M54.16) Patient denies any lower extremity pain currently. Consider referral to neurosurgery in the future if needed Jan, Lumbosacral spondylosis (ICD-10 - M47.817) 82 year old female here for follow up to discuss chronic pain. She voices complaints of axial low back pain today. I independently reviewed her recent lumbar spine MRI which shows multilevel degenerative disc disease which is causing significant narrowing of the spinal canal along with facet arthritis. Discussed with patient different treatment options, patient is a candidate for a bilateral lumbar facet medial branch nerve blocks. Risks and benefits of procedure explained to patient; patient verbalizes understanding. Jan, Chronic pain (ICD-10 - G89.29) Stable, follow up after procedure Jan, Sacroiliitis (ICD-10 - M46.1) Consider SI joint injections in the future if needed Jan, Lumbar degenerative disc disease (ICD-10 - M51.36) Stable, follow up after procedure [employer] Other 10-26-2023 Evaluation note* Encounter Date Diagnosis Assessment Notes Treatment Notes Treatment Clinical Notes Dec, Chronic pain (ICD-10 - G89.29) Stable, follow up after MRI. Dec, Lumbar radiculopathy (ICD-10 - M54.16) 82 year old female presents with complaints of low back pain with radiation down the posterior aspect of the right lower extremity to the foot. She states pain has been present for more than 1 year, denying any known inciting trauma. Prior to examining the patient I reviewed recent progress notes from the referring provider, Dr. Sanchez. I reviewed her recent lumbar spine x-ray with her and discussed different treatment options. I will order a lumbar spine MRI to further evaluate her pain. She can follow up after the MRI to review it and discuss further options. Dec, Sacroiliitis (ICD-10 - M46.1) Consider SI joint injections in the future if needed Dec, Lumbar degenerative disc disease (ICD-10 - M51.36) Stable, follow up after MRI Dec, Other Medical deci aimee making shows a new problem to me with further workup planned or suggested with the potential for extensive treatment options that were considered with the most applicable given this patient's situation as noted above. Treatment options considered include a combination of physical therapy approaches, pharmacologic management, and interventional procedures. Those most applicable to the patient were discussed at this time. Risk of complications and/or morbidity and mortality is high given that acute and chronic pain poses a threat to life and bodily function if undertreated, poorly treated or with failure to maintain adequate treatment and timely followup. Given the serious and fluctuating nature of pain with extensive consideration for whenever pain changes, there always remains the possibility of prolonged functional impairment requiring constant patient reassessment and high-level medical decision making. The amount and complexity of data reviewed is high given that patient labs, radiology reports, and other test were obtained, reviewed and summarized as applicable from the physician portal and/or outside medical records. Pertinent positive and negative findings were considered in medical decision-making. [employer] Other 02-21-2023 NoteHISTORY: Bone density screening COMPARISON: DEXA scan 06/16/20. PROCEDURE: Imaging of the lumbar spine and bilateral hips was obtained for bone density evaluation. FINDINGS: REGION BMD (g/cm??) YOUNG ADULT T-SCORE AGE-MATCHED Z-SCORE LEFT NECK 0.731 -1.1 1.2 RIGHT NECK 0.798 -0.5 1.8 LUMBAR 1.513 4.2 6.9 The mean BMD and T score for both hips is -0.9. Therefore, together the findings indicate: Normal Bone Mass and places the patient at no significant risk for fracture. This information can serve as a baseline with which to compare future studies. Recommend follow-up exam in 2 years, sooner as clinically necessary. Comment: The T-score is the primary focus of the interpretation of a patient???s bone mineral density measurement. The T-score is the number of standard deviations and individual is above or below the mean value for a young female having normal bone mass. The WHO defines osteoporosis based on the T-score value: +1.0 to -0.9 : Normal bone mass -1.0 to -2.5 : Osteopenia and thus may be at future risk of fracture. -2.6 to -5.0 : Osteoporosis and at significantly increased risk of fracture. IMPRESSION: NORMAL BONE MASS : TWO YEAR FOLLOW-UP RECOMMENDED Report reported and signed by Michael Craig on 04/27/2022 1150[facility]02-11-2021 NotePatient Outreach ([facility]) ARIANE WILL ([id number]) 1940 F Date Time Provider Department 04/17/20 GIFTY CHATMAN During your visit today, we recorded the following information about you: Allergies As of Date: 04/17/2020 Noted Allergy Reaction CIPROFLOXACIN 08/10/2017 2 - Rash CODEINE-GUAIFENESIN 08/10/2017 16 - Unknown HYDROCODONE-ACETAMINOPHEN 08/10/2017 11 - Vomiting LEVOFLOXACIN 08/10/2017 2 - Rash MORPHINE 08/10/2017 1 - Mental Status Change MOXIFLOXACIN 08/10/2017 2 - Rash OXYCODONE-ACETAMINOPHEN 08/10/2017 11 - Vomiting PENICILLINS 04/10/2012 4 - Hives Date Reviewed: 04/12/2018 Reviewed by: Gloria Harrington - Fully Assessed Order(s):SARS-COVID VACCINE 1ST DOSE APPT [[id number]] Order #: [id number] FUTURE Prescriptions as of 04/17/2020 Sig: GLIMEPIRIDE 2 MG TABLET TK 1 T PO D IN THE MORNING WI* BLOOD SUGAR DIAGNOSTIC STRIPS once daily. for testing OMEPRAZOLE MAGNESIUM 20 MG TA* Take 1 tablet by mouth twice * CARVEDILOL 12.5 MG TABLET TK 1 T PO QHS DIAZEPAM 10 MG TABLET FLUTICASONE PROPIONATE 50 MCG* Use 1 [place] in each nostril o* GLIMEPIRIDE 4 MG TABLET Take 4 mg by mouth daily with* EYE DROPS IRRITATION RELIEF O* Use 1 Drop in eyes as directe* OMEGA 0-JRM-TBE-FISH OIL 1,00* Take 1 g by mouth once daily. CARVEDILOL 6.25 MG TABLET FUROSEMIDE 20 MG TABLET Take 20 mg by mouth twice tosin* ATORVASTATIN 80 MG TABLET Take 80 mg by mouth once nadeem* LISINOPRIL 20 MG-HYDROCHLOROT* Take 1 tablet by mouth once d* LEVOTHYROXINE 100 MCG TABLET Take 100 mcg by mouth daily b* ASPIR-81 ORAL Take 1 tablet by mouth once d* Problem List As Of Date 04/17/2020 Noted Resolved Breast cancer [C50.919] 04/10/2012 Letter Text Encounter Status:Closed by TALAT ARANA on 04/21/20[facility] Evaluation noteNo InformationNortGe[facility] Center [employer] Other Evaluation note* Diagnosis Status post laparoscopic cholecystectomy- Primary Other postprocedural status documented in this encounter [facility] SystemEvaluation [facility]* Diagnosis Type 2 diabetes mellitus with hyperglycemia, with long-term current use of insulin ([facility] Primary Vitamin D deficiency Insulin long-term use ([facility]) Encounter for long-term (current) use of insulin Hyperlipemia, mixed ([facility]/HCC) Mixed hyperlipidemia Primary hypertension ([facility]) Unspecified essential hypertension Stage 3b chronic kidney disease (HCC) ([facility]) Class 2 severe obesity due to excess calories with serious comorbidity and body mass index (BMI) of 36.0 to 36.9 in adult ([facility]) documented in this encounter [facility] HealthcareEvaluation note* Diagnosis Acquired hypothyroidism ([facility]) Unspecified hypothyroidism Hypomagnesemia Disorders of magnesium metabolism Essential hypertension ([facility]) Unspecified essential hypertension documented in this encounter [facility] HealthcareEvaluation note* Diagnosis Type 2 diabetes mellitus with other circulatory complications ([facility]/HCC)- Primary documented in this encounter [facility] HealthcareEvaluation note* Diagnosis Primary osteoarthritis of right hip- Primary documented in this encounter [facility] HealthcareHistory general Narrative - Reported* Type Description Date Medical History hypothyroidism Medical History diabetes [facility] [employer] Other InstructionsNot on filedocumented in this encounter [facility] Summary Purpose Family History No Family History Records FoundNo Family History Records FoundNo Family History Records FoundNo Family History Records FoundNo Family History Records FoundNo Family History Records FoundNo Family History Records Found Advance Directives No Advanced Directives Records FoundDocuments on File Type Date Recorded Patient 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 Expl anation Durable Power of [employer] 05/02/2020 9:54 AM Healthcare Power of [employer] Latest Code Status on File Code Status Date Activated Date Inactivated Comments Full Code 05/12/2023 3:41 PM 05/14/2023 3:30 PM Code Status History Code Status Date Activated Date Inactivated Comments Full Code 04/25/2020 7:43 PM 04/26/2020 1:21 PM Full Code 10/20/2019 7:07 PM 10/21/2019 7:00 PM Full Code 06/25/2019 5:09 PM 06/27/2019 3:24 PM Full Code 01/07/2019 12:07 PM 01/08/2019 5:31 PM Additional Source Comments INFORMATION SOURCE (unrecogn ized section and content) DATE CREATED AUTHOR 03/31/[address] [facility] DATE CREATED AUTHOR AUTHOR'S ORGANIZ ATION 04/28/2022 [facility] Specialist DATE CREATED AUTHOR AUTHOR'S ORGANIZ ATION 08/13/2022 [facility] DATE CREATED AUTHOR AUTHOR'S ORGANIZ ATION 02/08/2023 [facility] DATE CREATED AUTHOR AUTHOR'S ORGANIZ ATION 07/21/2023 [facility] DATE CREATED AUTHOR AUTHOR'S ORGANIZ ATION 09/19/2023 [facility] DATE CREATED AUTHOR AUTHOR'S ORGANIZ ATION 01/10/2024 [facility] dical Specialists EPIC REASON FOR VISIT (unrecogniz ed section and content) Reason Comments Post-op Post op davinci chol ecystectomy performed 05/13/23 at [facility] Reason Comments Diabetes Follow-up Reason Onset Date Comments Med Refill 01/01/2024 Reason Comments Med Refill Reason Comments Pain Care Teams (unrecognized sec tion and content) Barber Apprentice Relationship Specialty Start Date End Date Mahnaz Hubbard MD [address] [place] [address] PCP - General Family Medicine 07/16/22 Mahnaz Hubbard MD [address] [place] [address] PCP - ACO Reach 07/29/22 Barber Apprentice Relationship Specialty Start Date End Date Mahnaz Hubbard MD [address] [place] [address] PCP - General Family Medicine 05/12/23 Barber Apprentice Relationship Specialty Start Date End Date Mahnaz Hubbard MD [address] [place] [address] PCP - General Family Medicine 07/16/22 Mavis Wynn DO [address] [place] [address] PCP - [employer] 03/07/23 Mahnaz Hubbard MD [address] [place] [address] PCP - ACO Reach 07/06/23 Lin Masters NP [address] [place] [address] Nurse Practitioner Family Medicine 10/19/23 Barber Apprentice Relationship Specialty Start Date End Date Mahnaz Hubbard MD [address] [place] [address] PCP - General Family Medicine 07/16/22 Mavis Wynn DO [address] [place] [address] PCP - [employer] 03/07/23 Mahnaz Hubbard MD [address] [place] [address] PCP - ACO Reach 07/06/23 Lin Masters NP [address] [place] [address] Nurse Practitioner Family Medicine 10/19/23 Barber Apprentice Relationship Specialty Start Date End Date Mahnaz Hubbard MD [address] [place] [address] PCP - General Family Medicine 07/16/22 Mavis Wynn DO [address] [place] [address] PCP - Aet 03/07/23 Mahnaz Hubbard MD [address] [place] [address] PCP - ACO Reach 07/06/23 Lin Masters PRE ASSEMBLY WIRER [address] [place] [address] Nurse Practitioner Family Medicine 10/19/23 Barber Apprentice Relationship Specialty Start Date End Date Mahnaz Hubbard MD [address] [place] [address] PCP - General Family Medicine 07/16/22 Mavis Wynn DO [address] [place] [address] PCP - Aet 03/07/23 Mahnaz Hubbard MD [address] [place] [address] PCP - ACO Reach 07/06/23 Lin Masters NP [address] [place] [address] Nurse Practitioner Family Medicine 10/19/23 Barber Apprentice Relationship Specialty Start Date End Date Mahnaz Hubbard MD [address] [place] [address] PCP - General Family Medicine 07/16/22 Mavis Wynn DO [address] [facility] [place], [place] [id number] PCP - [employer] 03/07/23 Mahnaz Hubbard MD [address] [facility] [address] [place], [place] [id number] PCP - ACO Reach 07/06/23 Lin Masters NP [address] [facility] [place], [place] [id number] Nurse Practitioner Family Medicine 10/19/23 FOR RECORDS PERTAINING TO PATIENTS WHO ARE OR HAVE BEEN ENROLLED IN A CHEMICAL DEPENDENCY/SUBSTANCEABUSE PROGRAM, SOME INFORMATION MAY BE OMITTED. This clinical summary was aggregated from multiple sources. Caution should be exercised in using it in the provision of clinical care. This summary normalizes information from multiple sources, and as a consequence, information in this document may materially change the coding, format and clinical context of patient data. In addition, data may be omitted in some cases. CLINICAL DECISIONS SHOULD BE BASED ON THE PRIMARY CLINICAL RECORDS. [employer] provides no warranty or guarantee of the accuracy or completeness of information in this document.
[2024-01-18] MEDS: LIDOCAINE HCL 10 ML, SODIUM BICARBONATE 1 MEQ INJ (10:25)
[2024-01-18] MEDS: BUPIVACAINE HCL 0.5% PF 50 MG/10 ML VIAL 2 ML INJ (10:25)
[2024-01-18] MEDS: TRIAMCINOLONE ACETONIDE 40 MG/ML VIAL INJ (10:25)
--- NOTE | 2024-01-18 10:59 | SUR.PREOP ---
01/10/24 Pt instructed on procedure, date, time,and prep.
== END 2024-01-18 10:45 | disposition home or self-care (01) ==
LOC: FL 09:21
PROVIDERS: Radiology Diagnostic Radiology; PCP Family Medicine; Visit Provider Orthopaedic Surgery
DX: M16.11 Unilateral primary osteoarthritis, right hip (principal)
CPT/HCPCS: 20610; 77002; J0665; J3301; Q9966